=== PATIENT | female | born 1955 | race Caucasian/White ===

== ENCOUNTER 2016-06-27 11:06 | Inpatient (IN) | payer OTHER ==
[~2016-06-27] VITALS: Ht 170.2 cm; Wt 131.1 kg
--- NOTE | 2016-06-27 12:02 | DIAGNOSTIC IMAGING REPORT ---
PROCEDURE: XR CHEST 1 VIEW INDICATION: SOB AND ALTERED TECHNIQUE: Portable AP view 11:48 a.m. COMPARISON: None available FINDINGS: There is cardiomegaly and pulmonary vascular congestion. No focal infiltrates. IMPRESSION: 1. Cardiomegaly and pulmonary vascular congestion.
--- NOTE | 2016-06-27 15:02 | DIAGNOSTIC IMAGING REPORT ---
PROCEDURE: CT HEAD WITHOUT CONTRAST INDICATION: ALTERED TECHNIQUE: Axial CT images were acquired through the head. Coronal and sagittal reformations were created. COMPARISON: None. FINDINGS: No intracranial hemorrhage or extraaxial fluid collections. Ventricles are normal in size, shape and position. There is no mass, mass effect or midline shift. The oneil-white matter differentiation is normal. There is no edema. The calvarium is intact. The paranasal sinuses and mastoid air cells are normally aerated. The extracranial soft tissues and orbits are normal. IMPRESSION: 1. No CT evidence of acute intracranial process. 2. Findings discussed with Kaela at 03:[address] scans at this facility use dose modulation, iterative reconstruction, and/or weight-based dosing when appropriate to reduce radiation dose to as low as reasonably achievable.
--- NOTE | 2016-06-27 15:39 | DIAGNOSTIC IMAGING REPORT ---
PROCEDURE: CTA THORAX WITH CONTRAST INDICATION: SOB AND ELEVATED D-DIMER, initial encounter TECHNIQUE: 75 ml of Isovue 370 was injected intravenously and axial images were obtained of the entire thorax with 3D sagittal and coronal MIP reconstructions. COMPARISON: Chest x-ray 06/27/2016 FINDINGS: No evidence of pulmonary emboli. Ground-glass appearance of the lungs bilaterally. Mild mediastinal and hilar adenopathy. No effusions. Mild cardiomegaly. Minor coronary atherosclerosis. Small hiatal hernia. Mild degenerative changes of the spine. IMPRESSION: 1. No evidence of pulmonary emboli 2. Cardiomegaly with ground-glass passive lung suggestive of mild CHF 3. Results discussed with Dr. Sherwood
--- NOTE | 2016-06-27 15:46 | ED CLINICAL REPORT ---
Clinical Report - Physicians/Mid Levels [facility] [address] [place] [address] 06/27/2016 11:06 Patient: KAMARI BALDERAS Arrived- By ambulance. Historian- EMS personnel. History unobtainable due to patient's unresponsiveness. HISTORY OF PRESENT ILLNESS Chief Complaint: DECREASED MENTAL STATUS. This started today and is still present (staying the same). It was abrupt in onset and has been constant but is not gone now. 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 Similar symptoms previously: ( unable to obtain secondary to patient's condition). Recent medical care: ( unable to obtain secondary to patient's condition). REVIEW OF SYSTEMS unable to obtain secondary to patient's condition. PAST HISTORY See nurses notes. Medications: Metoprolol Succinate ER Oral (Tablet Extended Release 24 Hour 100 mg) 1 tablet, BID. Furosemide Oral (Tablet 40 mg) 1 tablet, daily. Spironolactone Oral (Tablet 25 mg) 1 tablet, daily. Losartan Potassium Oral (Tablet 100 mg) 1 tablet, daily. Digoxin Oral (Tablet 250 mcg) 1 tablet, daily. Levothyroxine Sodium Oral (Tablet 150 mcg) 1 tablet, daily. HumuLIN N Subcutaneous (Suspension 100 unit/mL) 55 units q Morning and 37 units every evening. HumuLIN R Injection (Solution 100 unit/mL) 5 units, BID. Levothyroxine Sodium Oral (Tablet 100 mcg) 1 tablet, daily. Hydrocodone-Acetaminophen Oral (Tablet 7.5-325 mg) 1 tablet, 4x a day. Famotidine Oral (Tablet 20 mg) 1 tablet, 2x a day. Allergies: NKDA. SOCIAL HISTORY unable to obtain secondary to patient's condition. FAMILY HISTORY unable to obtain secondary to patient's condition. ADDITIONAL NOTES The nursing notes have been reviewed. PHYSICAL EXAM Vital Signs: 06/27/2016 11:00 BP: 133/76. HR: 140. RR: 21. O2 saturation: 98%. Blood pressure normal. Tachycardic. Oxygen saturation normal. Appearance: Lethargic. Patient in severe distress. (obviously ill). Head: Head atraumatic. Eyes: Pupils equal, round and reactive to light. ENT: Normal ENT inspection. Airway intact. Moist mucous membranes. Pharynx normal. Neck: Normal inspection. Neck supple. No meningeal signs. CVS: Tachycardia. Abnormal rhythm (regularly irregular). Heart sounds normal. Pulses normal. Respiratory: No respiratory distress. Breath sounds normal. Abdomen: Soft and nontender. Back: Normal inspection. Skin: Skin warm and dry. Normal skin color. No rash. Normal skin turgor. Extremities: Extremities exhibit normal ROM. No lower extremity edema. No calf tenderness. No lower extremity edema. Neuro: Altered mental status. Alertness is decreased. Cranial nerves normal (as tested). (unable to completely neurological exam secondary to patient'sclinical condition. Patient is unable to follow commands. Patient's eyes do not open spontaneously and only open to tactile stimulation. Patient is able to make an understandable words Patient follows commands however is generally weak. Patient is moving all 4 extremities on command. Sensation is grossly intact). LABS, X-RAYS, AND EKG EKG: No acute ischemia. Atrial fibrillation (narrow-complex) (122). Abnormal P waves. Normal QRS complex. Normal axis. Normal ST and T waves, QT and QTc. a fib with RVR. The study has been interpreted contemporaneously by me. The study has been independently viewed by me. The EKG appears to be a good tracing. EKG #2: No acute ischemia. Normal sinus rhythm. Rate: 62. Normal P waves. Normal DOMINIC. Normal QRS complex. Q waves in lead II, III and aVF. Normal axis. Normal ST and T waves, QT and QTc. normal sinus. Q waves in inferior distribution. improved from prior. Changes present when compared to prior EKG. (improved). The study has been interpreted contemporaneously. The study has been independently viewed by me. The EKG appears to be a good tracing. Chest X-ray: (PROCEDURE: XR CHEST 1 VIEW INDICATION: SOB AND ALTERED TECHNIQUE: Portable AP view 11:48 a.m. COMPARISON: None available FINDINGS: There is cardiomegaly and pulmonary vascular congestion. No focal infiltrates. IMPRESSION: 1. Cardiomegaly and pulmonary vascular congestion.). Views: PA and lateral. The X-rays were independently viewed by me and interpreted contemporaneously by me. Laboratory Tests: UA-Culture if indicated: (JANNA: 06/27/2016 12:40) ( [facility] [place] 06/27/2016 13:05) Final results Test Result Flag Units (Reference) URINE COLOR YELLOW URINE APPEARANCE CLEAR URINE GLUCOSE 2+ (NEGATIVE) URINE BILIRUBIN NEGATIVE (NEGATIVE) URINE KETONE TRACE (NEGATIVE) URINE SPECIFIC GRAVITY 1.025 (1.010-1.030) URINE PH 5.5 (5.0-8.0) URINE PROTEIN NEGATIVE (NEGATIVE) URINE UROBILINOGEN 0.2 EU/dL (0.2-1.0) URINE NITRITE NEGATIVE (NEGATIVE) URINE BLOOD NEGATIVE (NEGATIVE) URINE LEUK ESTERASE NEGATIVE (NEGATIVE) URINE RBC NONE SEEN rbc/hpf (0-1) URINE WBC 1-3 wbc/hpf (0-1) URINE EPITHELIAL CELLS 3-5 EPI/hpf (0-5) URINE BACTERIA FEW (1+) (NONE SEEN) URINE COMMENT CULT NOT INDICATED 1+ AMORPHOUS [id number] HYALINE CASTS/LPFURINE CULTURES ARE SET-UP BASED ON THE FOLLOWING CRITERIA:POSITIVE NITRITEPOSITIVE LEUKOCYTE ESTERASEGREATER THAN 10 WHITE BLOOD CELLSMODERATE (2+) OR GREATER BACTERIA CBC w Diff: (JANNA: 06/27/2016 11:50) ( [facility] [place] 06/27/2016 11:59) Final results Test Result Flag Units (Reference) WHITE BLOOD COUNT 13.3 H K/uL (4.5-11.5) RED BLOOD COUNT 4.72 M/uL (4.00-5.20) HEMOGLOBIN 14.8 gm/dL (12.0-16.0) HEMATOCRIT 45.1 % (36.0-46.0) MEAN CELL VOLUME 96 fL (80-100) MEAN CORPUSCULAR HGB 31 pg (26-34) MEAN CORPUSCULAR HGB CONC 33 g/dL (31-37) RED CELL DISTRIBUTION WIDTH 14.6 % (11.6-14.8) PLATELET COUNT 215 K/uL (150-400) NEUTROPHIL % 80.9 H % (50-75) LYMPH % 12.9 L % (25-40) MONO % 5.8 % (3-14) EOSINOPHIL % 0.2 % (0-4) BASOPHIL % 0.2 % (0-2) PT with INR: (JANNA: 06/27/2016 11:50) ( [facility] 06/27/2016 12:12) Final results Test Result Flag Units (Reference) INR 1.1 (0.8-1.2) Low Intensity Therapy: INR 1.5-2.0 PT range 18.5-23.1Mod.Intensity Therapy: INR 2.0-3.0 PT range 23.1-31.5High Intensity Therapy: INR 2.5-3.5 PT range 27.4-35.5High Intensity Therapy 2: INR 3.0-4.0 PT range 31.5-39.3 APTT 27 SECONDS (24-34) D-DIMER QUANTITATIVE 1.47 H ug/mLFEU (0.27-0.52) The primary value of this quantitative assay relates toits negative predictive value (i.e. exclusion) of pulmonaryembolism/deep vein thrombosis/DIC.Elevated levels of d-dimer may also occur with:, age, cancer, inflammation, liver disease,post-op, infection, hematoma, coronary disease, peripheralarteriopathy, bleeding disorders and thrombolytic treatment.Results should be correlated with other clinical andradiological data.Testing Methodology: Latex Immunoassay Urine Drug Screen: (JANNA: 06/27/2016 12:40) ( [facility] 06/27/2016 13:09) Final results Test Result Flag Units (Reference) AMPHETAMINE/METHAMPHETAMINE NEGATIVE (NEGATIVE) BARBITURATE NEGATIVE (NEGATIVE) BENZODIAZEPINE NEGATIVE (NEGATIVE) CANNABINOID NEGATIVE (NEGATIVE) COCAINE NEGATIVE (NEGATIVE) ECSTASY NEGATIVE (NEGATIVE) METHADONE NEGATIVE (NEGATIVE) OPIATE POSITIVE H (NEGATIVE) The urine drug screen is a qualitative screening test fordrug overdose and abuse. All screen results should beconsidered as presumptive.Drugs screened for are as follows:BenzodiazepinesCocaineAmphetamines/MetamphetaminesTHC (Tetrahydrocannabinol)OpiatesBarbituratesEcstasyMethadonePositive results are unconfirmed. For confirmation, notifythe lab for the specimen to be sent to the reference lab.All confirmations must be performed by a differentmethodology.The ingestion of natural herbal and plant productscontaining Ephedra/Ephedra metabolites can produce in urineone or more substances capable of cross reacting withamphetamine/methamphetamine immunoassays. These testsprovide a preliminary result only. A more specificalternative chemical method must be used to obtain aconfirmed analytical result. Salicylate Level: (JANNA: 06/27/2016 12:10) ( [facility] 06/27/2016 13:24) Final results Test Result Flag Units (Reference) SALICYLATE <2.8 L mg/dL (2.8-20) Acetaminophen Level: (JANNA: 06/27/2016 12:10) ( [facility] 06/27/2016 13:40) Final results Test Result Flag Units (Reference) ACETAMINOPHEN < 1 L ug/mL (10-30) Lactate, Serum: (JANNA: 06/27/2016 11:50) ( [facility] 06/27/2016 13:32) Final results Test Result Flag Units (Reference) LACTIC ACID 4.8 H mmol/L (0.4-2.0) CRITICAL RESULTS CALLEDCalled to [facility] 06/27/16 [id number] 2 patient identifiers used? YWas the result read back? Y [id number]: (JANNA: 06/27/2016 12:10) ( [facility] 06/27/2016 12:55) Final results Test Result Flag Units (Reference) PROCALCITONIN 4.9 H ng/mL (0-0.5) PCT Concentration: Interpretation : Risk/option for action PCT <=0.5 ng/mL : Systemic : Low risk forinfection(sepsis): progression to severeis not likely. : systemic infection.Local bacterial : CAUTION-PCT levelsinfection is : below 0.5 ng/mL do notpossible. : exclude an infection,because localizedinfections (withoutsystemic signs) may beassociated with suchlow levels. If PCT ismeasured very earlyafter a bacterialchallenge (usually <6hours), these valuesmay still be low. Inthis case PCT shouldbe re-assessed 6-24hours later. PCT >0.5 and : Systemic infection: Moderate risk for<= 2 ng/mL : (sepsis) is : progression to severepossible, but : systemic infection.other conditions : The patient should beare known to : closely monitoredelevate PCT. : both clinically andby re-assessing PCTwithin 6-24 hours. PCT > 2 ng/mL : Systemic infection: High risk for(sepsis) is likely: progression to severeunless other : systemic infection.causes are known. : PCT >= 10 ng/mL : Important systemic: High likelihood ofinflammatory : severe sepsis orresponse, almost : septic shock.exclusively due to:severe bacterial :sepsis or septic :shock. : CMP: (JANNA: 06/27/2016 11:50) ( [facility] 06/27/2016 13:43) Final results Test Result Flag Units (Reference) TROPONIN I 0.00 ng/mL (0.00-1.5) TROPONIN REFERENCE RANGE:<0.1 NEGATIVE0.1-1.5 INDETERMINANT>1.5 POSITIVE GLUCOSE 226 H mg/dL (70-110) BUN 36 H mg/dL (7-18) CREATININE 1.6 H mg/dL (0.6-1.3) Estimated GFR 34.71 mL/min Estimated GFR- 42.07 mL/min Note: Persistent reduction over 3 months in eGFR<60 mL/min/1.73 m2 defines CKD. Patients with eGFR values>=60 mL/min/1.73 m2 may also have CKD if evidence ofpersistent proteinuria. Additional information may be foundat [email or web address]. SODIUM 138 mmol/L (136-145) POTASSIUM 3.3 L mmol/L (3.5-5.1) CHLORIDE 99 mmol/L (98-107) CARBON DIOXIDE 25 mmol/L (21-32) CALCIUM 9.1 mg/dL (8.5-10.1) TOTAL PROTEIN 7.2 g/dL (6.4-8.2) ALBUMIN 3.2 L g/dL (3.3-5.0) BILIRUBIN, TOTAL 0.8 mg/dL (0.0-1.0) ALKALINE PHOSPHATASE 117 H U/L (46-116) AST (SGOT) 24 U/L (15-37) ALT (SGPT) 35 U/L (12-78) THYROID STIMULATING HORMONE 17.262 H uIU/mL (0.30-3.74) . PROGRESS AND PROCEDURES Cardioversion: Indication: tachyarrhythmia. Patient clinically unstable with altered level of consciousness. IV established. O2 administered. Placed on monitoring and evaluation advisor and pulse oximeter. Airway equipment present. Preparations limited by clinical urgency. Cardioversion performed by ED physician. Supervised by me. Etomidate 20 mg IVP given. Electrical cardioversion via the anterolateral approach using pads. First shock at 200 joules. Second shock at 200 joules. Post cardioversion rhythm: normal sinus rhythm. No contact burn, apnea or hypotension. Patient required 2 shocks at 200 J. Patient tolerated procedure well. No compilations. Course of Care: the patient is a 60-year-old female with past medical history significant for diabetes resenting for evaluation of altered mental status. Per EMS, patient called them for shortness of breath. The patient was alert and oriented by the time that they had arrived. Patient was noted to be hypoglycemic. The patient was able to tolerate by mouth glucose and increased her blood sugar to normal levels. Since then, patient rapidly deteriorated and became minimally responsive. The patient does follow commands but is overall generally weak. Patient has been nonverbal since then. Workup at this time is extensive. Patient is moving all 4 extremities on command however is very sleepy and difficult to wake up. Patient is nonverbal here in the emergency department. At this time, differential diagnosis includes persistent hypoglycemia, electrolyte abnormality, or infectious etiology. While patient was being here in the emergency department, her pulse was noted to be rapid and irregular. When placed on the monitor, patient was noted to be in A. fib with RVR. Because of the patient's altered mental status, was concerned about patient being unstable. Unable to obtain verbal or written consent due to patient's condition. Because of this, the patient was placed on a monitor and cardioverted with 20 mg of etomidate. Respiratory therapist was available at bedside. Patient tolerated procedure well. Patient needed to shocks for her to get out of the A. fib. Patient with normal sinus rhythm. Patient monitored and continued to recover without any competitions. Patient continues to be nonverbal on repeat examination. We were able to get a temperature on the patient after we are unable to obtain axillary or oral temperatures. This was done through the Cordova catheter. Patient was noted to be hypothermic. In light of patient's persistent altered mental status, several laboratory studies have also been added to the patient's workup. The patient was also actively rewarmed with a bear hugger and with warm IV fluids. Patient will be monitored closely. Patient has no other bouts of sustained atrial fibrillation with RVR. Because of the patient's shortness of breath, a d-dimer was ordered. The d-dimer was noted to be elevated. CT scan of the patient's chest was ordered for evaluation of pulmonary embolism. A CT scan of the patient's head was also ordered due to the altered mental status. IV hydration was provided as the patient's creatinine was noted to be borderline. At this time I feel the benefits of the CT scan for evaluation of patient's reported shortness of breath outweighs the risks of contrast-induced nephropathy. The patient's workup is pending. At this time however patient does have significant lab abnormalities. PCT is elevated as well as lactic acid. Patient's white count is elevated to 13.3. Because of this, antibiotics and blood cultures have been ordered. Unclear where the patient's abnormal laboratory values have been arisen from however feel the benefits of antibiotic coverage given patient meeting SIRS criteria outweighs the risks. we'll continue to monitor the patient at this time. Patient without further clinical improvement with intervention started here in the emergency department. 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 We were able to speak to the patient's daughter who states that the patient has multiple medicalconditions including thyroid problems. We were able to contact the pharmacy the patient reportedly goes to. Medication lists were obtained. Because of the patient's abnormal TSH and altered mental status as well as hypoglycemia and hypotension, we'll provide patient with IV prednisone and Thyroid hormone. Patient will be monitored closely. Family member updated on patient's status. Approximately 15 minutes after medications have been provided, patient had become much more alert and was able to speak. Patient is resting in bed and in no acute distress. Patient is able to explain to us what it happened while she was here in the emergency department. The patient remembers us saying "clear. "This is likely occurred when she was being Cardioverted. patient here in the emergency department. No further questions or recommendations as far as for laboratory tests. Patient is to be admitted to the intensive care unit. Patient was transferred to the intensive care unit without furtherdelay or incident. Critical care performed (125 minutes). Time is exclusive of separately billable procedures. Time includes: direct patient care, patient reassessment, coordination of patient care, interpretation of data (laboratory data), review of patient's medical records, medical consultation, family consultation regarding treatment decisions and documentation of patient care. CLINICAL IMPRESSION myxedema coma hypothymia hypoglycemia atrial fibrillation with rapid ventricular response hypotension SIRS. (Electronically signed by Dick Sherwood Dr. 06/29/2016 18:24)
--- NOTE | 2016-06-27 15:46 | ED ORDER SUMMARY ---
..... Patient: KAMARI BALDERAS OrderSheet [facility] VisitID: [id number] [place] [address] 60y, F Registration Date/Time: 06/27/2016 ORDER SHEET Weight: 99.7 kg (estimated) Allergies: NKDA GENERAL ORDERS: Chest 1V Urgent (11:06/27/2016 Kika Palma) (Ack 11:42 LTapper) (11:58 KWilliams R.N.) Senior Electronics Engineer (Continuous) (altered) (11:06/27/2016 Kika Palma) (11:37 KWilliams R.N.) CBC w Diff Urgent (:06/27/2016 Kika Palma) (Ack 11:42 LTapper) (11:58 KWilliams R.N.) CMP Urgent (11:06/27/2016 Kika Palma) (Ack 11:42 LTapper) (11:58 KWilliams R.N.) UA-Culture if indicated Urgent (11:06/27/2016 Kika Palma) (Ack 11:42 LTapper) (13:24 KWilliams R.N.) Troponin-I Urgent (11:06/27/2016 Kika Palma) (Ack 11:42 LTapper) (11:58 KWilliams R.N.) D-Dimer Urgent (11:06/27/2016 Kika Palma) (Ack 11:42 LTapper) (11:58 KWilliams R.N.) TSH Urgent (11:06/27/2016 Kika Palma) (Ack 11:42 LTapper) (11:58 KWilliams R.N.) PT with INR Urgent (11:06/27/2016 Kika Palma) (Ack 11:42 LTapper) (11:58 KWilliams R.N.) PTT Urgent (11:06/27/2016 Kika Palma) (Ack 11:42 LTapper) (11:58 KWilliams R.N.) Lactate, Serum Urgent (11:06/27/2016 Kika Palma) (Ack 11:42 LTapper) (11:58 KWilliams R.N.) PCT (Procalcitonin) Urgent (11:19 06/27/2016 Kika Palma) (Ack 11:42 LTapper) (11:58 KWilliams R.N.) Pulse oximeter (11:19 06/27/2016 Kika Palma) (12:27 KWilliams R.N.) EKG - ER Stat (11:19 06/27/2016 Kika Palma) (11:37 KWilliams R.N.) CT Head wo Cont Urgent (12:03 06/27/2016 Kika Palma) (Ack 12:19 LTapper) (15:24 KWilliams R.N.) - (active rewarming) (12:46 06/27/2016 Kika Palma) (Ack 12:49 LTapper) (13:24 KWilliams R.N.) Acetaminophen Level Urgent (12:46 06/27/2016 Kika Palma) (Ack 12:49 LTapper) (13:39 KWilliams R.N.) Salicylate Level Urgent (12:46 06/27/2016 Kika Palma) (Ack 12:49 LTapper) (13:39 KWilliams R.N.) Urine Drug Screen Urgent (12:46 06/27/2016 Kika Palma) (Ack 12:49 LTapper) (13:24 KWilliams R.N.) CTA Thorax w Cont (Yes) (N/A) Urgent (12:47 06/27/2016 Kika Palma) (Ack 12:49 LTapper) (15:24 KWilliams R.N.) Blood Culture (No) (N/A) Urgent (13:33 06/27/2016 Kika Palma) (13:56 KWilliams R.N.) Troponin-I Urgent (15:02 06/27/2016 Kika Palma) (Ack 15:05 LTapper) (16:01 KWilliams R.N.) Digoxin Level Urgent (16:19 06/27/2016 KWilliams R.N. verbal order read back to Kika Palma) (16:19 KWilliams R.N.) MEDICATION ORDERS: Hydrocortisone IV 100 mg (NOW) (15:30 06/27/2016 Kika Palma) (15:59 KWmarty R.N.) - (Thyroid hormone 100 mcg IV once now) (15:33 06/27/2016 Kika Palma) (16:00 Nisreen R.N.) Aspirin PO 325 mg (Do not crush or chew, NOW) (19:09 06/27/2016 Kika Palma) (19:25 KWilliams R.N.) IV FLUIDS: IV NS : initial bolus 1000 mL (1000 mL/hr), then none - for X1 (NOW) (11:19 06/27/2016 Kika Palma) (11:39 KWilliams R.N.) Etomidate IV 20 mg (HIGH ALERT MEDICATION, NOW) (11:58 06/27/2016 Nisreen R.N. verbal order read back to Kika Palma) (11:58 KWilliams R.N.) Naloxone IV 0.1 mg (HIGH ALERT MEDICATION, NOW) (12:27 06/27/2016 Nisreen R.N. verbal order read back to Kika Palma) (12:31 KWkourtneyams R.N.) Naloxone IV 0.1 mg (Repeat up to total dose of 0.4mg) (12:32 06/27/2016 Nisreen R.N. verbal order read back to Kika Palma) (12:33 KWilliams R.N.) Ceftriaxone IV 2 gm/50mL (NOW) (13:31 06/27/2016 Kika Palma) (13:56 KWilliams R.N.) IV NS : initial bolus none -, then 1000 mL/hr for X1 (NOW) (13:43 06/27/2016 Nisreen R.N. verbal order read back to Kika Palma) (13:45 KWilliams R.N.) IV NS : initial bolus none -, then 1000 mL/hr (NOW) (15:37 06/27/2016 Nisreen R.N. verbal order read back to Kika Palma) (15:38 KWilliams R.N.) Morphine IV 2 mg (HIGH ALERT MEDICATION, NOW) (17:31 06/27/2016 Nisreen Ott verbal order read back to Kika Palma) (17:32 Nisreen McwilliamsNOswaldo) Morphine IV 2 mg (PRN x 1 dose) (17:33 06/27/2016 Nisreen Morton. verbal order read back to Kika Palma) (Ack 17:33 Nisreen R.N.) IV NS : initial bolus none -, then 75 mL/hr for 6h (NOW) (20:05 06/27/2016 Nisreen Ott verbal order read back to Kika Palma) (20:06 Nisreen Ott) ORDER SHEET NOTES: [Electronically signed by Rai Dykes R.N. (20:09 06/27/2016)] [Electronically signed by Dick Sherwood Dr. (18:24 06/29/2016)] [Electronically locked/signed by Rai Dykes R.N. (20:09 06/27/2016)]
--- NOTE | 2016-06-27 15:46 | ED NURSING NOTES ---
Clinical Report - Nurses [facility] [place] [address] 06/27/2016 11:06 Patient: KAMARI BALDERAS TRIAGE Triage time 11:00. Acuity: LEVEL 2. Chief Complaint: DECREASED RESPONSIVENESS. 11:00 06/27/16. FRANC COMA SCORE: Franc Coma Scale: 11- eyes open to pain (2); best verbal response- disoriented (4); best motor response- localizes to pain (5). --11:48 Rai Dykes R.N. 11:00 06/27/16. BP: 133/76. HR: 140. RR: 21. O2 saturation: 98%. --11:48 Rai Dykes R.N. Weight: 99.7 kg estimated. Height/Length: 66 inches Estimated. BMI: 35.5. --11:35 Rai Dykes R.N. Medications Famotidine Oral (Tablet 20 mg) 1 tablet, 2x a day. --12:12 Rai Dykes R.N. Hydrocodone-Acetaminophen Oral (Tablet 7.5-325 mg) 1 tablet, 4x a day. --12:12 Rai Dykes R.N. Levothyroxine Sodium Oral (Tablet 100 mcg) 1 tablet, daily. --16:04 Rai Dykes R.N. HumuLIN R Injection (Solution 100 unit/mL) 5 units, BID. --16:04 Rai Dykes R.N. HumuLIN N Subcutaneous (Suspension 100 unit/mL) 55 units q Morning and 37 units every evening. --16:05 Rai Dykes R.N. Levothyroxine Sodium Oral (Tablet 150 mcg) 1 tablet, daily. --16:06 Rai Dykes R.N. Digoxin Oral (Tablet 250 mcg) 1 tablet, daily. --16:06 Rai Dykes R.N. Losartan Potassium Oral (Tablet 100 mg) 1 tablet, daily. --16:07 Rai Dykes R.N. Spironolactone Oral (Tablet 25 mg) 1 tablet, daily. --16:08 Rai Dykes R.N. Furosemide Oral (Tablet 40 mg) 1 tablet, daily. --16:09 Rai Dykes R.N. Metoprolol Succinate ER Oral (Tablet Extended Release 24 Hour 100 mg) 1 tablet, BID. --16:10 Rai Dykes R.N. The following entry was struck by Rai Dykes R.N., 16:04 (06/27/16) Reason - other. <<STRICKEN ENTRY-- Nitroglycerin Sublingual. --12:17 Rai Dykes R.N. --END STRIKE>> The following entry was struck by Rai Dykes R.N., 16:04 (06/27/16) Reason - other. <<STRICKEN ENTRY-- Metoprolol Tartrate Oral. --12:17 Rai Dykes R.N. --END STRIKE>> The following entry was struck and corrected by Rai Dykes R.N., 16:03 (06/27/16) Reason for correction - other(correction). <<STRICKEN ENTRY-- Hydrocodone-Acetaminophen Oral. --12:12 Rai Dykes R.N. --END STRIKE>> The following entry was struck and corrected by Rai Dykes R.N., 16:03 (06/27/16) Reason for correction - other(correction). <<STRICKEN ENTRY-- Famotidine Oral. --12:12 Rai Dykes R.N. --END STRIKE>> The following entry was struck by Rai Dykes R.N., 16:03 (06/27/16) Reason - other. <<STRICKEN ENTRY-- Atorvastatin Calcium Oral. --12:12 Rai Dykes R.N. --END STRIKE>>. Allergies NKDA. --12:17 Rai Dykes R.N. History Arrived by EMS. Historian: EMS. Primary physician (eleni). ( pt called 911 from home c/o hypoglycemia and trouble breathing initially. Pt found to have sugar at 53 and given oral glucose followed by an IV insertion and 12.5 grams d50. Per EMS pt was decreased LOC but able to respond to them. Per this RN's initial assessment, pt is very minimally responsive, no verbal responses, winces to pain. Dr Sherwood brought into room to assess. See progress note. Pt unable to be fully triaged due to inability to answer questions for this RN.). This started just prior to arrival. Treatment [employer]OR[employer] WELLNESS DIRECTOR: None. --11:48 Rai Dykes R.N. Treatment SPORTS [employer] AND WELLNESS DIRECTOR: EMS treatment SPORTS FITNESS AND WELLNESS DIRECTOR verbally communicated and report reviewed. See report. Finger stick glucose performed (118 @5 min SPORTS [employer] AND WELLNESS DIRECTOR). BP: 157/95. HR: 80. RR: 16. O2 saturation: 98 % room air. End tidal CO2: 31. ( Afib 60-100 per medics). Upon arrival patient lethargic. IV infusing x1. --11:56 Rai Dykes R.N. PROBLEMS: Diabetes Mellitus. Tonsillitis. Otitis Media. Cellulitis. Sinus Problems. Immunizations. --12:17 Rai Dykes R.N. ADDITIONAL SURGERIES: . Knee Surgery. --12:17 Rai Dykes R.N. Interventions ID band on patient. To treatment room. --11:48 Rai Dykes R.N. PHYSICAL ASSESSMENT 11:00. To room via stretcher. Baseline functional status: usually alert and oriented x4. (lives alone). GENERAL / NEURO / PSYCH: Decreased awareness (opens eyes only to pain and lethargic). Altered mental status. Patient responds to pain only. No response to questions and responds to simple commands. ( Able to move fingers and toes equally when prompted by MD). HEENT: No facial asymmetry noted. RESPIRATORY: Respirations not labored. CVS: Capillary refill less than 2 seconds. SKIN: Skin is intact, warm and dry. --11:52 Rai Dykes R.N. NURSING PROGRESS NOTES 11:24 06/27/2016 Site #1 started prior to arrival by EMS via IV in the left antecubital space with an 18g angiocath, with aseptic technique and good blood return; one attempt. Saline lock flushed with 10 mL saline. --11:39 Rai Dykes R.N. 11:24 06/27/2016 Started bag #1 1000 mL IV Fluids IV NS (Saline); at 999 mL/hr over 1 hour(s) via site #1. Allergies verified and confirmed 5 rights. IV patency established. IV site checked: no pain, redness, or swelling. IV flushed thoroughly pre- and post-medication administration. --11:39 Rai Dykes R.N. 11:02. The plan of care for this patient has been created. school lunch monitor, pulse oximeter and NIBP monitor placed on patient; monitor alarms on. Patient gowned. Head of bed elevated. Side rails up x 2. Bed placed in lowest position. Brakes of bed on. Patient ready for evaluation- chart flagged and ED physician notified. --11:53 Rai Dykes R.N. <<STRICKEN ENTRY-- Cardiac rhythm: atrial fibrillation; (143). --11:53 Rai Dykes R.N. --END STRIKE>> Correction --11:53 Rai Dykes R.N. 11:05. Cardiac rhythm: atrial fibrillation; (143). --11:53 Rai Dykes R.N. 11:29 06/27/2016 Etomidate IVP 20 mg given over 2 minute(s) via site #1. Allergies verified and confirmed 5 rights. IV patency established. IV site checked: no pain, redness, or swelling. IV flushed thoroughly pre- and post-medication administration. IVP given by RN. --11:58 Rai Dykes R.N. 12:01 06/27/16. BP: 98/55. --12:06 Rai Dykes R.N. 12:06 06/27/16. BP: 101/58. HR: 60. RR: 14. O2 saturation: 97% on room air. Napoles-Hammond pain scale: 0/10. --12:08 Rai Dykes R.N. 12:18 06/27/16. BP: 108/61. HR: 62. RR: 16. O2 saturation: 100%. Pain level now 0/10. --12:18 Rai Dykes R.N. EKG time: (11:27 AM). EKG was performed by a tech and shown to the ED physician. --12:27 Rodriguez Montejo EKG time: (11:39 AM). EKG was performed by a tech and shown to the ED physician. --12:29 Rodriguez Montejo 12:15 06/27/2016 Naloxone IVP 0.1 mg given over 1 minute(s) via site #1. Allergies verified and confirmed 5 rights. IV patency established. IV site checked: no pain, redness, or swelling. IV flushed thoroughly pre- and post-medication administration. IVP given by RN. --12:31 Rai Dykes R.N. 12:18 06/27/16. Cardiac rhythm: normal sinus rhythm. --12:18 Rai Dykes R.N. 12:30 06/27/2016 Naloxone IVP 0.1 mg given over 1 minute(s) via site #1. Allergies verified and confirmed 5 rights. IV patency established. IV site checked: no pain, redness, or swelling. IV flushed thoroughly pre- and post-medication administration. IVP given by RN. --12:33 Rai Dykes R.N. 11:13. Finger stick glucose: 216. --12:33 Rai Dykes R.N. 11:29. ( Symptomatic Afib with RVR, pt sedated with etomidate and synchronized cardioversion @ 200 joules at 1129. Following first shock, pt continues to be in afib at rate of 117. 2nd shock delivered at 1131, synchronized at 200 joules. Following shock #2, Pt conversed to NSR at rate of 66. Pt continues to be lethargic and responsive to painful stimuli.). --12:02 Rai Dykes R.N. 12:57 06/27/16. BP: 115/45. HR: 56. RR: 18. O2 saturation: 100% on nasal cannula at 2 liters/minute. Temp: 34.5 C. Pain level now 0/10. Additional comments: temp sensing chavira. --12:59 Rai Dykes R.N. ( continues to be lethargic. aware. Opens eyes to painful stimuli. No verbal responses.). --12:59 Rai Dykes R.N. 13:11 06/27/16. HR: 56. RR: 18. O2 saturation: 100%. Temp: 34.2 C. Pain level now 0/10. Additional comments: temp sensing chavira upon initial placement. --13:12 Rai Dykes R.N. 12:35. 14 fr temperature sensing chavira catheter for close monitoring of hypothermia. Data sent to monitor. Inserted as precaution. Reason for indwelling catheter: patient's decreased level of consciousness. During procedure hand hygiene observed and sterile equipment and aseptic technique used. Return of 250 mL denise-colored clear urine; odor is normal; attached to bedside drainage bag positioned below the bladder and urimeter and secured with stabilization device. She tolerated procedure well. --13:12 Rai Dykes R.N. 12:35. Warming measures: blanket and warming unit applied (warming lights). --13:13 Rai Dykes R.N. 13:03 06/27/2016 Site #2 started via IV in the right antecubital space with an 18g angiocath, with aseptic technique and good blood return; one attempt. Saline lock flushed with 10 mL saline (via ultrasound guidance). --13:13 Rai Dykes R.N. 13:15 06/27/16. BP: 96/63. HR: 50. RR: 15. O2 saturation: 100% on room air. Temp: 34.7 C. Pain level now 0/10. --13:24 Rai Dykes R.N. 13:15. --13:24 Rai Dykes R.N. 13:15. ( IV fluids infusing through fluid warmer unit). --13:24 Rai Dykes R.N. 13:24 06/27/16. BP: 104/48. HR: 51. RR: 16. O2 saturation: 100%. Temp: 34.8 C. Pain level now 0/10. --13:27 Rai Dykes R.N. 13:44 06/27/16. BP: 116/50. HR: 56. RR: 19. O2 saturation: 100% on nasal cannula at 2 liters/minute. Temp: 34.9 C. Pain level now 0/10. --13:45 Rai Dykes R.N. 13:10 06/27/2016 Started bag #2 1000 mL IV Fluids IV NS (Saline); at 999 mL/hr over 1 hour(s) via site #2 via IV pump. Allergies verified and confirmed 5 rights. IV patency established. IV site checked: no pain, redness, or swelling. IV flushed thoroughly pre- and post-medication administration (fluid warmer). --13:45 Rai Dykes R.N. 13:45 06/27/16. --13:45 Rai Dykes R.N. Patient ID band checked. Blood samples drawn from the peripheral IV site with syringe by nurse and sent to lab: blood culture (1st set). Initial blood discarded. Line flushed with 10 mL normal saline post blood draw. --13:49 Rai Dykes R.N. 13:54 06/27/2016 Started 2 gm of Ceftriaxone IVPB in bag #1 50 mL; at 150 mL/hr over 20 minute(s) via site #2 via IV pump. Allergies verified and confirmed 5 rights. IV patency established. IV site checked: no pain, redness, or swelling. IV flushed thoroughly pre- and post-medication administration. --13:56 Rai Dykes R.N. 13:59 06/27/16. BP: 124/56. HR: 63. RR: 16. O2 saturation: 100%. Temp: 35 C. Pain level now 0/10. --14:00 Rai Dykes R.N. 14:19 06/27/16. BP: 110/52. HR: 56. RR: 18. O2 saturation: 100% on room air. Temp: 35.1 C. Pain level now 0/10. --14:19 Rai Dykes R.N. Reassessment after fluids administered and intervention. She has had no adverse reaction. --14:19 Rai Dykes R.N. 14:17 06/27/2016 Ceftriaxone IVPB Discontinued: bag #1 infused. Total amount infused: 50 mL. IV patency established. IV site checked: no pain, redness, or swelling. IV flushed thoroughly. --14:27 Rai Dykes R.N. 14:24 06/27/16. Cardiac rhythm: normal sinus rhythm. ( sister at bedside). --14:24 Rai Dykes R.N. 14:33. Patient transported to MI by stretcher with monitor, nurse and tech. --14:56 Rai Dykes R.N. 15:00 06/27/16. BP: 121/62. HR: 60. RR: 15. O2 saturation: 99% on room air. Temp: 35.9 C. Pain level now 0/10. --15:23 Rai Dykes R.N. 15:00. --15:23 Rai Dykes R.N. Cardiac rhythm: normal sinus rhythm. --15:24 Rai Dykes R.N. Reassessment after intervention and medication administered. She has had no adverse reaction. Overall patient status is improved- she states feels better. ( pt much improved. GCS15, opens eyes spontaneously. Conversing with this RNMD, and her sister.). --16:31 Rai Dykes R.N. 16:28 06/27/16. BP: 115/50. HR: 71. RR: 16. O2 saturation: 100% on room air. Temp: 36.6 C. Pain level now 8/10. --16:31 Rai Dykes R.N. 17:19 06/27/16. BP: 119/54. HR: 70. RR: 12. O2 saturation: 97% on room air. Temp: 37 C. Pain level now 8/10. --17:20 Rai Dykes R.N. Cardiac rhythm: normal sinus rhythm. --17:20 Rai Dykes R.N. 17:08. Reassessment after intervention and medication administered. She reports no complaints, she is calm and resting quietly and she has had no adverse reaction. --17:36 Rai Dykes R.N. 17:31 06/27/16. BP: 103/47. HR: 72. RR: 15. O2 saturation: 99% on room air. Temp: 37.2 C (oral). --17:36 Rai Dykes R.N. 18:37 06/27/16. BP: 109/46. HR: 77. RR: 17. O2 saturation: 96% on room air. Temp: 37.6 C. Pain level now 12/05. --18:37 Rai Dykes R.N. 12:30 06/27/2016 IV Fluids IV NS Discontinued: bag #1 infused. Total amount infused: 1000 mL. IV patency established. IV site checked: no pain, redness, or swelling. IV flushed thoroughly. --20:02 Rai Dykes R.N. 14:25 06/27/2016 IV Fluids IV NS Discontinued: bag #2 infused. Total amount infused: 1000 mL. IV patency established. IV site checked: no pain, redness, or swelling. IV flushed thoroughly. --20:04 Rai Dykes R.N. 14:56 06/27/16. Patient returned from CT by stretcher with monitor, nurse and tech. --14:56 Rai Dykes R.N. 15:03 06/27/2016 Started bag #3 1000 mL IV Fluids IV NS (Saline); at 999 mL/hr over 1 hour(s) via site #2 via IV pump. Allergies verified and confirmed 5 rights. IV patency established. IV site checked: no pain, redness, or swelling. IV flushed thoroughly pre- and post-medication administration (fluid warmer). --15:38 Rai Dykes R.N. 15:52 06/27/2016 Hydrocortisone IVP 100 mg given over 2 minute(s) via site #1. Allergies verified and confirmed 5 rights. IV patency established. IV site checked: no pain, redness, or swelling. IV flushed thoroughly pre- and post-medication administration. IVP given by RN. --15:59 Rai Dykes R.N. 15:55 06/27/2016 Levothyroxine * IVP 100 mcg Diluted with 5cc NS per pharmacy. Slowly pushed over 5 minutes --16:00 Rai Dykes R.N. 16:05 06/27/2016 IV Fluids IV NS Discontinued: bag #3 infused. Total amount infused: 1000 mL. IV patency established. IV site checked: no pain, redness, or swelling. IV flushed thoroughly. --20:05 Rai Dykes R.N. 16:10 06/27/2016 Started bag #4 1000 mL IV Fluids IV NS (Saline); at 75 mL/hr over 6 hour(s) via site #2 via IV pump. Allergies verified and confirmed 5 rights. IV patency established. IV site checked: no pain, redness, or swelling. IV flushed thoroughly pre- and post-medication administration. Completed per protocol (fluid warmer). --20:06 Rai Dykes R.N. 16:36 06/27/16. FRANC COMA SCORE: Gerald Coma Scale: 15- eyes open spontaneously (4); best verbal response- oriented x 4 (5); best motor response- obeys commands (6). --16:36 Rai Dykes R.N. 17:25 06/27/2016 Morphine IVP 2 mg given over 2 minute(s) via site #2. Allergies verified, confirmed 5 rights and sedative warning given to the patient and patient's public welfare worker. IV patency established. IV site checked: no pain, redness, or swelling. IV flushed thoroughly pre- and post-medication administration. IVP given by RN. --17:32 Rai Dykes R.N. 18:37 06/27/16. Cardiac rhythm: normal sinus rhythm. --18:37 Rai Dykes R.N. 19:10 06/27/2016 Aspirin PO Tablets 325 mg given. Allergies verified and confirmed 5 rights. --19:25 Rai Dykes R.N. 19:20 06/27/2016 IV Fluids IV NS Continued: upon admission at the rate of 75 mL/hr. 750 mL remaining bag #4. IV patency established. IV site checked: no pain, redness, or swelling. IV flushed thoroughly. --20:07 Rai Dykes R.N. Intake & Output 15:24 06/27/16. Urine, with return of 400 mL urine. --15:24 Rai Dykes R.N. DISPOSITION / DISCHARGE 19:16 06/27/16. Departure time: 1919. Cardiac rhythm: normal sinus rhythm. Condition at departure: improved and stable. Admitted to the Critical Care Unit. Transported via stretcher by nurse with monitor, defibrillator and IV (by this RN). ( Report to be given at bedside to TIRE FABRICATOR). Patient's personal items; items were transported with the patient. --19:16 Rai Dykes R.N. 19:12 06/27/16. BP: 109/74. HR: 86. RR: 23. O2 saturation: 95% on room air. Temp: 37.7 C. Pain level now 10. --19:16 Rai Dykes R.N. 19:30. Report was given to a nurse at the bedside. Report included patient's care, treatment, medications, reviewed medication reconcilliation, and condition (including any recent changes or anticipated changes). All questions were answered. Report was acknowledged and care was transferred. --20:07 Rai Dykes R.N. Locked/Released at 06/27/2016 20:09 by Rai Dykes R.N.
--- NOTE | 2016-06-27 18:44 | Progress Note ---
Subjective General Admission History and Physical Examination Patient Name: Aniya Sultana Admission Date: June 27, 2016 Primary Care Provider: Elroy Alvarez M.D. Attending Physician: Jamil Navarro M.D. Admitting Physician: Jamil Navarro M.D. SUBJECTIVE Historian: Relatives, patient Reliability: Poor Chief Complaint: Altered mental status History of Present Illness: The patient is a 60-year-old white female with a significant past medical history of diabetes mellitus, hypothyroidism, hypertension, degenerative joint disease, cataracts, hypercholesterolemia, gastroesophageal reflux, who presented to [facility] emergency department on the day of admission secondary to complaints of altered mental status and shortness of breath. [facility] ER evaluation was consistent with findings of hypoglycemia, hypothermia, altered mental status, atrial fibrillation with rapid ventricular response, and possible sepsis. Secondary to the above, the patient was admitted by Jamil Navarro M.D. for further evaluation and treatment. The history of present was began on the day of admission when the patient apparently experienced an episode of hypoglycemia at home. This was associated with altered mental status according transported to [facility] emergency department. The patient was administered D50 with improved status. She is noted to have findings of atrial fibrillation with rapid response and underwent cardioversion in [facility] emergency department. Addition the patient's only have hypothermia. Her white count was elevated with elevated Procalcitonin but no obvious source of infectious process. Secondary to the above the patient was admitted for further evaluation and treatment. PAST MEDICAL HISTORY Illnesses: 1. Diabetes mellitus 2. Hypertension 3. Hyperlipidemia 4. Gastroesophageal reflux 5. Hypothyroidism 6. Atrial fibrillation Allergies: 1. No Known Drug Allergies Medications: 1. Synthroid 0.15 mg by mouth daily 2. Digoxin 0.25 mg by mouth daily 3. Humulin N 55 units subcutaneous every morning and 37 units subcutaneous every p.m 4. Regular insulin 10 units subcutaneous with each meal Surgery: 1. Right knee surgery 2. 2 3. Thyroidectomy 4. Cataract surgery-IOL Injuries: 1. Unknown Hospitalizations: 1. For above surgery and medical problems FAMILY HISTORY Parents: 1. Father, , 79, cancer type unknown, 2. Mother, , 82, COPD Siblings: 1. The patient has 5 siblings one of which is Children: 1. The patient has 2 children both in good health Other significant family history: None SOCIAL HISTORY 1. Marital Status: 2. Evangelical: None 3. Education: High School and 2 years of vocational education 4. Employment History: disabled 5. Occupational health exposures: None HABITS 1. Tobacco: None 2. Drugs: None 3. Alcohol: None 4. Caffeine: coffee 2 cups per day, soft drinks 2 cups per day HEALTH SUPERVISION Item/Test 1. Not reviewed IMMUNIZATIONS: 1. Pneumococcal: Unknown 2. Influenza: Unknown 3. Tetanus: Unknown REVIEW OF SYSTEMS Remarkable for those things stated in the history of present illness and past medical history. Seventeen point review of system completed with the following notable findings: Unobtainable secondary to mental status Physical Exam General Appearance Oriented X3, Cooperative, No acute distress, lethargic HEENT Atraumatic, PERRLA, EOMI, Moist mucous membranes Lungs Clear to auscultation Neck Supple, No JVD Cardiovascular Regular rate and rhythm, Normal S1 and S2 Abdomen Normal bowel sounds, Soft, No tenderness Extremities No cyanosis, No clubbing Neurological Cranial nerves intact, Strength 5/5 x4 ext's, No lateralizing signs Psych/Mental Status Mental status normal, Mood normal LAB Results Laboratory Tests 06/27 06/27 06/27 06/27 1619 1548 1240 1210 Chemistry Troponin (0.00 - 1.5 ng/mL) <0.05 Toxicology Digoxin (0.9 - 2.0 ng/mL) 0.4 Salicylates (2.8 - 20 mg/dL) <2.8 Urine Opiates Screen (NEGATIVE) POSITIVE Urine Methadone Screen (NEGATIVE) NEGATIVE Ur Barbiturates Screen (NEGATIVE) NEGATIVE U Amphetamin/Meth Scrn (NEGATIVE) NEGATIVE MDMA (Ecstasy) Screen (NEGATIVE) NEGATIVE U Benzodiazepines Scrn (NEGATIVE) NEGATIVE Urine Cocaine Screen (NEGATIVE) NEGATIVE U Cannabinoids Screen (NEGATIVE) NEGATIVE Urines Urine Color YELLOW Urine Appearance CLEAR Urine pH (5.0 - 8.0) 5.5 Ur Specific [place] (1.010 - 1.030) 1.025 Urine Protein (NEGATIVE) NEGATIVE Urine Ketones (NEGATIVE) TRACE Urine Blood (NEGATIVE) NEGATIVE Urine Nitrite (NEGATIVE) NEGATIVE Urine Bilirubin (NEGATIVE) NEGATIVE Urine Urobilinogen (0.2 - 1.0 EU/dL) 0.2 Ur Leukocyte Esterase (NEGATIVE) NEGATIVE Urine RBC (0 - 1 rbc/hpf) NONE SEEN Urine WBC (0 - 1 wbc/hpf) 1-3 Ur Epithelial Cells (0 - 5 EPI/hpf) 3-5 Urine Bacteria (NONE SEEN) FEW (1+) Urine Glucose (NEGATIVE) 2+ Urine Comment CULT NOT INDICATED 06/27 06/27 06/27 1210 1150 1150 Chemistry Plasma Sodium (136 - 145 mmol/L) 138 Plasma Potassium (3.5 - 5.1 mmol/L) 3.3 Plasma Chloride (98 - 107 mmol/L) 99 CO2 (Enzymatic) (21 - 32 mmol/L) 25 BUN (7 - 18 mg/dL) 36 Creatinine (0.6 - 1.3 mg/dL) 1.6 Est GFR ( Amer) (mL/min) 42.07 Est GFR (Non-Af Amer) (mL/min) 34.71 Glucose (70 - 110 mg/dL) 226 Lactic Acid (0.4 - 2.0 mmol/L) 4.8 Plasma Calcium (8.5 - 10.1 mg/dL) 9.1 Total Bilirubin (0.0 - 1.0 mg/dL) 0.8 AST (15 - 37 U/L) 24 ALT (12 - 78 U/L) 35 Alkaline Phosphatase (46 - 116 U/L) 117 Troponin (0.00 - 1.5 ng/mL) 0.00 Total Protein (6.4 - 8.2 g/dL) 7.2 Albumin (3.3 - 5.0 g/dL) 3.2 Procalcitonin (0 - 0.5 ng/mL) 4.9 TSH 3rd Generation (0.30 - 3.74 uIU/mL) 17.262 Coagulation INR (0.8 - 1.2) 1.1 APTT (24 - 34 SECONDS) 27 D-Dimer, Quantitative (0.27 - 0.52 ug/mLFEU) 1.47 Hematology WBC (4.5 - 11.5 K/uL) 13.3 RBC (4.00 - 5.20 M/uL) 4.72 Hgb (12.0 - 16.0 gm/dL) 14.8 Hct (36.0 - 46.0 %) 45.1 MCV (80 - 100 fL) 96 MCH (26 - 34 pg) 31 RDW (11.6 - 14.8 %) 14.6 Neut % (Auto) (50 - 75 %) 80.9 Lymph % (Auto) (25 - 40 %) 12.9 [place] % (Auto) (3 - 14 %) 5.8 Eos % (Auto) (0 - 4 %) 0.2 Baso % (Auto) (0 - 2 %) 0.2 Plt Count, EDTA (150 - 400 K/uL) 215 PUBS MCHC (31 - 37 g/dL) 33 Toxicology Acetaminophen (10 - 30 ug/mL) < 1 Microbiology Date/Time Procedure - Status Source Growth 06/27 1355 Blood Culture - RECD BLOOD 06/27 1348 Blood Culture - RECD BLOOD Imaging Chest X-Ray IMPRESSION: 1. Cardiomegaly and pulmonary vascular congestion. Dictated by: PETER SULLIVAN MD D: ULI;06/27/[address] Scan Head IMPRESSION: 1. No CT evidence of acute intracranial process. 2. Findings discussed with Kaela at 03:00 p.m. Dictated by: PETER SULLIVAN MD D: [facility]LI;06/27/[address] Thorax IMPRESSION: 1. No evidence of pulmonary emboli 2. Cardiomegaly with ground-glass passive lung suggestive of mild CHF 3. Results discussed with Dr. Sherwood Dictated by: LIBRA DEVINE MD D: DOMO;06/27/16 1538 Assessment and Plan Problem List 1. Atrial fibrillation with RVR Plan -Patient presented with atrial fibrillation with rapid ventricular response -Patient underwent cardioversion in the emergency department -Lopressor 25 mg by mouth every 8 hours. -Check echocardiogram in a.m. -Monitor 2. Hypoglycemia Plan -Patient presented with findings of hypoglycemia -Corrected in the emergency department -Monitor blood sugar every 2 hours until stable -IV glucose administration, insulin sliding scale -Check hemoglobin A1c -Review previous treatment for diabetes mellitus 3. Hypothermia Plan -Patient presents with findings of hypothermia in setting of hyperglycemia/ hypothyroidism -External warming -Monitor 4. Hypotension Plan -Patient presented with mild hypotension -Resolved -Monitor 5. Sepsis Status Acute Onset Date Unknown Plan -patient presents with suspected sepsis -Patient with leukocytosis, elevated procalcitonin -Chest x-ray, urinalysis unremarkable -Rocephin administered empirically by ER physician -Await blood cultures 2, -Repeat lactic acid, Pro calcitonin, monitor 6. Hypokalemia Status Acute Onset Date Unknown Plan -patient with mild hypokalemia -IV supplementation IV fluids -Recheck in a.m. -Monitor 7. Azotemia Status Acute Onset Date Unknown Plan -patient with mild azotemia suggestive of mild dehydration/prerenal azotemia -Monitor --IV fluid therapy 8. Hypothyroidism Status Chronic Onset Date Unknown Plan -Patient presents with findings of hypothyroidism with hypothermia -Synthroid 0.2 mg now -Obtain previous workup and dosage schedule for thyroid supplementation -Monitor Current status: Fair, unstable Anticipated discharge date: Anticipated discharge in 2-3 days Anticipated discharge placement: Home versus nursing home facility Patient care time: Time spent in chart review, patient interview, physical exam, CPOE, and care documentation: 70 minutes Visit to patient today: 1 Complexity of care: High E&M Codes Admission: Inpt-High/[id number]
[2016-06-27 19:55] VITALS: BP 117/32
[2016-06-27 21:12] VITALS: BP 135/45
[2016-06-27 22:10] VITALS: BP 98/38
[2016-06-27 23:11] VITALS: BP 104/43
[2016-06-28] VITALS (26 sets, daily range): BP systolic 92–113; BP diastolic 33–60
[2016-06-28] MEDS ORDERED: HUMALIN R100 UNITS/ SC (06:55)
[2016-06-28] MEDS ORDERED: DIGOXIN0.25 MG PO (06:59)
[2016-06-28] MEDS ORDERED: LEVOTHYROXINE100 MCG PO (06:59)
[2016-06-28] MEDS ORDERED: VICODIN EQUIVAL1 TAB PO (07:06)
[2016-06-28] MEDS ORDERED: INSULIN N (07:41)
--- NOTE | 2016-06-28 07:49 | Progress Note ---
Subjective General Note Date: June 28, 2016 Admission Date: June 27, 2016 Hospital Day: 2 PCP: Elroy Alvarez M.D. Status: Inpatient Advanced Directive: FULL CODE Room: 303 Brief History: The patient is a 60-year-old white female with a significant past medical history of diabetes mellitus, hypothyroidism, hypertension, degenerative joint disease, cataracts, hypercholesterolemia, gastroesophageal reflux, who presented to [facility] emergency department on the day of admission secondary to complaints of altered mental status and shortness of breath. [facility] ER evaluation was consistent with findings of hypoglycemia, hypothermia, altered mental status, atrial fibrillation with rapid ventricular response, and possible sepsis. Secondary to the above, the patient was admitted by Jamil Navarro M.D. for further evaluation and treatment. For other history present illness, past medical history, family history, social history, review of systems, and admission physical examination please see the patient's history and physical examination and ER visit note in the patient's medical record. Subjective: The patient status is improved today. More alert. Complains of backache- chronic. Back pain is the patient's primary concern at this time. No other specific requests or complaints Patient requests: None Medications and Allergies Medications Current Medications Sig/Valeria Start time Last Medication Dose Route Stop Time Status Admin Ceftriaxone Sodium/ 50 ML Q24HR 06/28 0900 AC Dextrose IV Pantoprazole Sodium 40 MG DAILY@0600 06/28 0600 AC 06/28 IV 0507 Sodium Chloride 1,000 ML ASDIRECTED 06/28 0200 AC 06/28 IV 0518 Insulin Human Lispro See Dose Q6HR 06/28 0000 06/28 Insts (1) SC 0538 Metoprolol Tartrate 25 MG Q8HR 06/27 2200 AC 06/28 PO 0507 Dextrose See Dose Q15MIN PRN 06/27 2130 AC Insts (2) IV Dextrose See Dose Q15MIN PRN 06/27 2130 AC Insts (3) PO Dextrose/Water 1,000 ML ASDIRECTED PRN 06/27 2130 AC IV Glucagon 1 MG Q15MIN PRN 06/27 2130 AC IM Azithromycin 500 MG Q24H 06/27 2100 AC 06/27 Sodium Chloride 250 ML IV 06/29 2199 224 Enoxaparin Sodium 40 MG QHS 06/27 2100 AC 06/27 SC 2243 Acetaminophen 650 MG Q4H PRN 011914 AC 06/27 PO 2242 Al Hydrox/Mg Hydrox/ 15 ML Q1H PRN 06/27 1914 AC Simethicone PO Albuterol/Ipratropium 3 ML Q6H PRN 06/27 1914 AC IN Atropine Sulfate 0.5 MG Q3MIN PRN 06/27 1914 AC IV Lidocaine HCl See Dose ONCE PRN 06/27 1914 AC Insts (4) IV Magnesium Hydroxide 10 ML DAILY PRN 06/27 1914 AC PO Morphine Sulfate 2 MG Q3M PRN 06/27 1914 AC IV Naloxone HCl 0.4 MG PRN PRN 06/27 1914 AC IV Nitroglycerin 0.4 MG Q5M PRN 06/27 1914 AC SL Ondansetron HCl 4 MG Q6H PRN 06/27 1914 AC IV Dose Instructions: (1)Insulin Human Lispro: MEDIUM DOSE: ACCUCHECK AND SLIDING SCALE >>To change sliding scale DISCONTINUE this order and enter a NEW order. Thanks< (2)Dextrose: 25 OR 50 ML SEE ADMIN CRITERIA (3)Dextrose: 1 OR 2 TUBES SEE ADMIN CRITERIA (4)Lidocaine HCl: 1.5 MG/KG Allergies Coded Allergies: Coconut Flavor (06/28/16) [place] (06/28/16) Physical Exam Vital Signs / I&Os Vital Signs Date Time Temp Pulse Resp B/P Pulse O2 O2 Flow FiO2 Ox Delivery Rate 06/28 0700 65 13 110/49 99 Nasal 3.0 Cannula 06/28 0609 97.9 61 22 97/43 95 Nasal 3.0 Cannula 06/28 0514 70 22 107/44 100 Nasal 3.0 Cannula 06/28 0410 70 22 93/37 100 Nasal 3.0 Cannula 06/28 0310 69 22 111/54 98 Nasal 3.0 Cannula 06/28 0209 73 22 96/33 98 Nasal 3.0 Cannula 06/28 0127 98.8 71 22 105/38 98 Nasal 3.0 Cannula 06/28 0017 97.9 75 22 110/34 100 Nasal 3.0 Cannula 06/27 2311 81 22 104/43 99 Nasal 3.0 Cannula 06/27 2209 98.8 90 24 98/38 95 Nasal 3.0 Cannula 06/27 2116 3.0 06/27 2111 92 26 135/45 97 Nasal 3.0 Cannula 06/27 2100 Room Air 06/27 1954 98.2 89 17 117/32 92 Room Air I&O 06/28 0000 06/27 1600 06/27 0800 Intake Total 0 Output Total 430 Balance -430 General Appearance Oriented X3, Cooperative, No acute distress, slight lethargy Lungs Clear to auscultation Neck Supple, No JVD Cardiovascular Regular rate and rhythm, Normal S1 and S2 Abdomen Normal bowel sounds, Soft, No tenderness Extremities No cyanosis, No clubbing Neurological Grossly normal Psych/Mental Status Mental status normal, Mood depressed, slightly lethargic LAB Results Laboratory Tests 06/28 06/28 06/28 06/27 06/27 0147 0147 0147 2034 2034 Chemistry Plasma Sodium (136 - 145 mmol/L) 131 Plasma Potassium (3.5 - 5.1 mmol/L) 5.2 Plasma Chloride (98 - 107 mmol/L) 97 CO2 (Enzymatic) (21 - 32 mmol/L) 18 BUN (7 - 18 mg/dL) 37 Creatinine (0.6 - 1.3 mg/dL) 1.5 Est GFR ( Amer) (mL/min) 45.33 Est GFR (Non-Af Amer) (mL/min) 37.40 Glucose (70 - 110 mg/dL) 642 Hemoglobin A1c % (4.5 - 6.2 %) 9.6 Plasma Calcium (8.5 - 10.1 mg/dL) 7.9 Total Bilirubin (0.0 - 1.0 mg/dL) 0.9 AST (15 - 37 U/L) 34 ALT (12 - 78 U/L) 28 Alkaline Phosphatase (46 - 116 U/L) 98 Creatine Kinase (24 - 260 U/L) 230 153 Troponin (0.00 - 1.5 ng/mL) <0.05 <0.05 B-Natriuretic Peptide (5 - 100 pg/ml) 136 Total Protein (6.4 - 8.2 g/dL) 6.5 Albumin (3.3 - 5.0 g/dL) 2.7 Hematology WBC (4.5 - 11.5 K/uL) 13.7 RBC (4.00 - 5.20 M/uL) 3.97 Hgb (12.0 - 16.0 gm/dL) 12.1 Hct (36.0 - 46.0 %) 37.2 MCV (80 - 100 fL) 94 MCH (26 - 34 pg) 31 RDW (11.6 - 14.8 %) 14.9 Neut % (Auto) (50 - 75 %) 87 Lymph % (Auto) (25 - 40 %) 9 [place] % (Auto) (3 - 14 %) 4 Eos % (Auto) (0 - 4 %) 0 Baso % (Auto) (0 - 2 %) 0 Band Neutrophils % (0 - 8 %) 0 Metamyelocytes % (0 - 1 %) 0 Myelocytes (0 - 1 %) 0 Other Cell Type 0 Plt Count, EDTA (150 - 400 K/uL) 169 PUBS MCHC (31 - 37 g/dL) 33 06/27 06/27 06/27 06/27 06/27 1903 1903 1903 1619 1548 Chemistry Plasma Sodium (136 - 145 mmol/L) 136 Plasma Potassium (3.5 - 5.1 mmol/L) 4.6 Plasma Chloride (98 - 107 mmol/L) 100 CO2 (Enzymatic) (21 - 32 mmol/L) 23 BUN (7 - 18 mg/dL) 32 Creatinine (0.6 - 1.3 mg/dL) 1.2 Est GFR ( Amer) (mL/min) 58.64 Est GFR (Non-Af Amer) (mL/min) 48.38 Glucose (70 - 110 mg/dL) 432 Lactic Acid (0.4 - 2.0 mmol/L) 2.0 Plasma Calcium (8.5 - 10.1 mg/dL) 7.9 Troponin (0.00 - 1.5 ng/mL) <0.05 Procalcitonin (0 - 0.5 ng/mL) 5.2 Hematology WBC (4.5 - 11.5 K/uL) 14.7 RBC (4.00 - 5.20 M/uL) 4.13 Hgb (12.0 - 16.0 gm/dL) 12.9 Hct (36.0 - 46.0 %) 38.8 MCV (80 - 100 fL) 94 MCH (26 - 34 pg) 31 RDW (11.6 - 14.8 %) 14.5 Neut % (Auto) (50 - 75 %) 86 Lymph % (Auto) (25 - 40 %) 9 [place] % (Auto) (3 - 14 %) 2 Eos % (Auto) (0 - 4 %) 1 Baso % (Auto) (0 - 2 %) 0 Band Neutrophils % (0 - 8 %) 2 Metamyelocytes % (0 - 1 %) 0 Myelocytes (0 - 1 %) 0 Other Cell Type 0 Plt Count, EDTA (150 - 400 K/uL) 206 Anisocytosis (manual) 1+ PUBS MCHC (31 - 37 g/dL) 33 Toxicology Digoxin (0.9 - 2.0 ng/mL) 0.4 06/27 06/27 06/27 06/27 1240 1210 1210 1150 Chemistry Lactic Acid (0.4 - 2.0 mmol/L) 4.8 Procalcitonin (0 - 0.5 ng/mL) 4.9 Toxicology Salicylates (2.8 - 20 mg/dL) <2.8 Urine Opiates Screen (NEGATIVE) POSITIVE Urine Methadone Screen (NEGATIVE) NEGATIVE Acetaminophen (10 - 30 ug/mL) < 1 Ur Barbiturates Screen (NEGATIVE) NEGATIVE U Amphetamin/Meth Scrn (NEGATIVE) NEGATIVE MDMA (Ecstasy) Screen (NEGATIVE) NEGATIVE U Benzodiazepines Scrn (NEGATIVE) NEGATIVE Urine Cocaine Screen (NEGATIVE) NEGATIVE U Cannabinoids Screen (NEGATIVE) NEGATIVE Urines Urine Color YELLOW Urine Appearance CLEAR Urine pH (5.0 - 8.0) 5.5 Ur Specific [place] (1.010 - 1.030) 1.025 Urine Protein (NEGATIVE) NEGATIVE Urine Ketones (NEGATIVE) TRACE Urine Blood (NEGATIVE) NEGATIVE Urine Nitrite (NEGATIVE) NEGATIVE Urine Bilirubin (NEGATIVE) NEGATIVE Urine Urobilinogen (0.2 - 1.0 EU/dL) 0.2 Ur Leukocyte Esterase (NEGATIVE) NEGATIVE Urine RBC (0 - 1 rbc/hpf) NONE SEEN Urine WBC (0 - 1 wbc/hpf) 1-3 Ur Epithelial Cells (0 - 5 EPI/hpf) 3-5 Urine Bacteria (NONE SEEN) FEW (1+) Urine Glucose (NEGATIVE) 2+ Urine Comment CULT NOT INDICATED 06/27 1150 Chemistry Plasma Sodium (136 - 145 mmol/L) 138 Plasma Potassium (3.5 - 5.1 mmol/L) 3.3 Plasma Chloride (98 - 107 mmol/L) 99 CO2 (Enzymatic) (21 - 32 mmol/L) 25 BUN (7 - 18 mg/dL) 36 Creatinine (0.6 - 1.3 mg/dL) 1.6 Est GFR ( Amer) (mL/min) 42.07 Est GFR (Non-Af Amer) (mL/min) 34.71 Glucose (70 - 110 mg/dL) 226 Plasma Calcium (8.5 - 10.1 mg/dL) 9.1 Total Bilirubin (0.0 - 1.0 mg/dL) 0.8 AST (15 - 37 U/L) 24 ALT (12 - 78 U/L) 35 Alkaline Phosphatase (46 - 116 U/L) 117 Troponin (0.00 - 1.5 ng/mL) 0.00 Total Protein (6.4 - 8.2 g/dL) 7.2 Albumin (3.3 - 5.0 g/dL) 3.2 TSH 3rd Generation (0.30 - 3.74 uIU/mL) 17.262 Coagulation INR (0.8 - 1.2) 1.1 APTT (24 - 34 SECONDS) 27 D-Dimer, Quantitative (0.27 - 0.52 ug/mLFEU) 1.47 Hematology WBC (4.5 - 11.5 K/uL) 13.3 RBC (4.00 - 5.20 M/uL) 4.72 Hgb (12.0 - 16.0 gm/dL) 14.8 Hct (36.0 - 46.0 %) 45.1 MCV (80 - 100 fL) 96 MCH (26 - 34 pg) 31 RDW (11.6 - 14.8 %) 14.6 Neut % (Auto) (50 - 75 %) 80.9 Lymph % (Auto) (25 - 40 %) 12.9 [place] % (Auto) (3 - 14 %) 5.8 Eos % (Auto) (0 - 4 %) 0.2 Baso % (Auto) (0 - 2 %) 0.2 Plt Count, EDTA (150 - 400 K/uL) 215 PUBS MCHC (31 - 37 g/dL) 33 Microbiology Date/Time Procedure - Status Source Growth 06/27 1355 Blood Culture - RECD BLOOD 06/27 1348 Blood Culture - RECD BLOOD Assessment and Plan Problem List 1. Hypoglycemia Plan -Resolved -Patient with hyperglycemia today -Patient placed back on Lantus/Humalog sliding scale -Monitor 2. Hypothermia Plan -Resolved -Monitor 3. Hypotension Plan -Resolved -Blood pressure borderline low -IV fluid therapy with findings of prerenal azotemia -Monitor 4. Hypothyroidism Status Chronic Onset Date Unknown Plan -Patient with long-standing history of hypothyroidism -Patient had recent change in Synthroid to 0.15 mg by mouth daily. Patient was noted to have elevated TSH prior to change. -Continue Synthroid 0.15 mg by mouth daily -Monitor 5. Sepsis Status Acute Onset Date Unknown Plan -Patient presented with altered mental status -Patient with leukocytosis, elevated Procalcitonin -Afebrile since admission -No clear source of infection -Rocephin 2 g IV daily and her quit given in the ER per PM hospitalist -We'll recheck CBC with manual differential, ESR, CRP, and Procalcitonin a.m. -Await blood culture results -Repeat chest x-ray today -Monitor 6. Hypokalemia Status Acute Onset Date Unknown Plan -Patient with findings of hypokalemia on admission -Resolved -Monitor 7. Azotemia Status Acute Onset Date Unknown Plan -Patient with findings of prerenal azotemia/dehydration -IV fluid therapy -Monitor 8. Diabetes mellitus Status Chronic Onset Date Unknown Plan -Patient with history of long-standing diabetes mellitus type 2 -Lantus/Humalog -Blood sugar elevated -Continue above therapy/sliding scale -Hemoglobin A1c markedly elevated at 9.6 -Diabetic education -Monitor 9. Chronic back pain Status Chronic Onset Date Unknown Plan -Patient with history of chronic back pain -Chronic narcotic therapy -Patient continues to complain of back pain at this time with this being her primary concern -Toradol, continue Vicodin at outpatient dosage schedule -Follow-up with PCP post discharge 10. Atrial fibrillation with RVR Plan -Patient cardioverted in ER -Continue beta joey therapy -Check echocardiogram -Check BNP Current status: Fair, improved Anticipated discharge date: Anticipated discharge in 1-2 days Anticipated discharge placement: Home Patient care time: Time spent in chart review, patient interview, physical exam, CPOE, and care documentation: 35 minutes Visit to patient today: 2 Complexity of care: High E&M Codes Rounding: Inpt-High/[id number]
[2016-06-28] MEDS ORDERED: INSULIN N SC (10:24)
[2016-06-28] MEDS ORDERED: ASPIRIN EC325 MG PO (10:39)
[2016-06-28] MEDS ORDERED: TOPROL XL50 MG PO (10:40)
[2016-06-28] MEDS ORDERED: LIPITOR80 MG PO (10:41)
[2016-06-28] MEDS ORDERED: ZADITOR0.025 % OP (10:42)
[2016-06-28] MEDS ORDERED: FUROSEMIDE40 MG PO (10:44)
[2016-06-28] MEDS ORDERED: LOSARTAN POTAS100 MG PO (10:44)
[2016-06-28] MEDS ORDERED: ALDACTONE25 MG PO (10:45)
[2016-06-28] MEDS ORDERED: CVS ACID CONTRO20 MG PO (10:45)
[2016-06-28] MEDS ORDERED: [UNRECOGNIZED DRUG - OTHER] (10:48)
[2016-06-28] MEDS ORDERED: NITROSTAT0.4 MG SL (10:49)
--- NOTE | 2016-06-28 18:57 | DIAGNOSTIC IMAGING REPORT ---
PROCEDURE: XR CHEST 1 VIEW INDICATION: R/O pneumonia TECHNIQUE: Portable AP view 05:38 p.m. COMPARISON: 06/27/2016 FINDINGS: Lungs are clear. Cardiomegaly. Pulmonary vasculature is normal. Thorax is normal. IMPRESSION: 1. Lungs clear, cardiomegaly
[2016-06-29] VITALS (12 sets, daily range): BP systolic 92–120; BP diastolic 46–65
--- NOTE | 2016-06-29 07:34 | Progress Note ---
Subjective General Note Date: June 29, 2016 Admission Date: June 27, 2016 Hospital Day: 3 PCP: Elroy Alvarez M.D. Status: Inpatient Advanced Directive: FULL CODE Room: 303 Brief History: The patient is a 60-year-old white female with a significant past medical history of diabetes mellitus, hypothyroidism, hypertension, degenerative joint disease, cataracts, hypercholesterolemia, gastroesophageal reflux, who presented to [facility] emergency department on the day of admission secondary to complaints of altered mental status and shortness of breath. [facility] ER evaluation was consistent with findings of hypoglycemia, hypothermia, altered mental status, atrial fibrillation with rapid ventricular response, and possible sepsis. Secondary to the above, the patient was admitted by Jamil Navarro M.D. for further evaluation and treatment. For other history present illness, past medical history, family history, social history, review of systems, and admission physical examination please see the patient's history and physical examination and ER visit note in the patient's medical record. Subjective: The patient status is improved today. More alert. Complains of backache- chronic and right hip pain. Back pain/hip pain is the patient's primary concern at this time. No other specific requests or complaints Patient requests: None other than improved pain control Medications and Allergies Medications Current Medications Sig/Valeria Start time Last Medication Dose Route Stop Time Status Admin Spironolactone 25 MG DAILY 06/29 0900 AC PO Atorvastatin Calcium 80 MG QPM 06/28 1800 AC 06/28 PO 1835 Digoxin 250 MCG DAILY 06/28 1700 AC 06/28 PO 1838 Levothyroxine Sodium 50 MCG 0600 06/28 1659 AC 06/29 PO 0554 Levothyroxine Sodium 100 MCG 0600 06/28 1659 AC 06/29 PO 0554 Aspirin 325 MG DAILY 06/28 1658 AC 06/28 PO 1838 Sodium Chloride 500 ML ASDIRECTED 06/28 1500 AC 06/28 IV 1518 Insulin Human Lispro See Dose ACHS 06/28 1130 AC 06/28 Insts (1) SC 1657 Acetaminophen/ See Dose Q6H PRN 06/28 1115 AC 06/29 Hydrocodone Bitart Insts (2) PO 0247 Ceftriaxone Sodium/ 50 ML Q24HR 06/28 0900 AC 06/28 Dextrose IV 0902 Insulin Glargine 20 UNITS 0800,2100 06/28 0900 AC 06/28 SC 2129 Pantoprazole Sodium 40 MG DAILY@0600 06/28 0600 AC 06/29 IV 0554 Sodium Chloride 1,000 ML ASDIRECTED 06/28 0200 AC 06/29 IV 0247 Metoprolol Tartrate 25 MG Q8HR 06/27 220 AC 06/28 PO 0507 Dextrose See Dose Q15MIN PRN 06/27 213 AC Insts (3) IV Dextrose See Dose Q15MIN PRN 06/27 213 AC Insts (4) PO Dextrose/Water 1,000 ML ASDIRECTED PRN 06/27 2129 AC IV Glucagon 1 MG Q15MIN PRN 06/27 2129 AC IM Azithromycin 500 MG Q24H 06/27 2099 AC 06/28 Sodium Chloride 250 ML IV 06/29 Enoxaparin Sodium 40 MG QHS 06/27 2099 AC 06/28 SC 212 Acetaminophen 650 MG Q4H PRN 06/27 1914 AC 06/28 PO 0902 Al Hydrox/Mg Hydrox/ 15 ML Q1H PRN 06/27 1914 AC Simethicone PO Albuterol/Ipratropium 3 ML Q6H PRN 06/27 1914 AC IN Atropine Sulfate 0.5 MG Q3MIN PRN 06/27 1914 AC IV Lidocaine HCl See Dose ONCE PRN 06/27 1914 AC Insts (5) IV Magnesium Hydroxide 10 ML DAILY PRN 06/27 1914 AC PO Morphine Sulfate 2 MG Q3M PRN 06/27 1914 AC 06/29 IV 0247 Naloxone HCl 0.4 MG PRN PRN 06/27 1914 AC IV Nitroglycerin 0.4 MG Q5M PRN 06/27 1914 AC SL Ondansetron HCl 4 MG Q6H PRN 06/27 1914 AC IV Dose Instructions: (1)Insulin Human Lispro: MEDIUM DOSE: ACCUCHECK AND SLIDING SCALE >>To change sliding scale DISCONTINUE this order and enter a NEW order. Thanks< (2)Acetaminophen/Hydrocodone Bitart: 1 - 2 TABLETS (3)Dextrose: 25 OR 50 ML SEE ADMIN CRITERIA (4)Dextrose: 1 OR 2 TUBES SEE ADMIN CRITERIA (5)Lidocaine HCl: 1.5 MG/KG Allergies Coded Allergies: Coconut Flavor (06/28/16) Davilla (06/28/16) Physical Exam Vital Signs / I&Os Vital Signs Date Time Temp Pulse Resp B/P Pulse O2 O2 Flow FiO2 Ox Delivery Rate 06/29 0612 63 18 102/53 94 Room Air 06/29 0509 55 16 92/49 97 Nasal 2.0 Cannula 06/29 0405 61 18 92/47 95 Nasal 2.0 Cannula 06/29 0305 63 18 106/53 98 Nasal 2.0 Cannula 06/29 0205 97.9 64 18 116/53 99 Nasal 2.0 Cannula 06/29 0100 63 18 99/46 97 Nasal 2.0 Cannula 06/29 0008 56 16 105/52 98 Nasal 2.0 Cannula 06/28 2304 60 16 98/47 97 Nasal 2.0 Cannula 06/28 2200 79 16 95/44 100 Nasal 2.0 Cannula 06/280 69 16 95/44 99 Nasal 2.0 Cannula 06/28 2028 2.0 06/28 2020 Nasal 2.0 Cannula 06/28 2009 65 16 99/47 100 Nasal 2.0 Cannula 06/28 1909 65 16 98/45 97 Nasal 2.0 Cannula 06/28 1838 64 06/28 1812 97.9 60 16 104/53 100 Nasal 2.0 Cannula 06/28 1658 64 16 108/46 100 Nasal 2.0 Cannula 06/28 1608 61 16 95/48 95 Nasal 2.0 Cannula 06/28 1510 63 16 95/42 99 Nasal 2.0 Cannula 06/28 1400 98.2 74 16 92/47 100 Nasal 2.0 Cannula 06/28 1320 68 94/44 100 Nasal 3.0 Cannula 06/28 1300 65 15 92/46 100 Nasal 3.0 Cannula 06/28 1227 61 16 97/42 97 Nasal 3.0 Cannula 06/28 1100 72 18 92/60 100 Nasal 3.0 Cannula 06/28 1025 97.9 06/28 1000 68 15 101/45 100 Nasal 3.0 Cannula 06/28 0900 68 20 113/44 100 Nasal 3.0 Cannula 06/28 0812 65 16 112/50 100 Nasal 3.0 Cannula 06/28 0800 2.0 I&O 06/29 0000 06/28 1600 06/28 08 Intake Total 930 600 200 Output Total 187 1704 820 Balance 516 -[phone] -819 General Appearance Oriented X3, Cooperative, No acute distress, remains slightly lethargic Lungs Clear to auscultation, Normal air movement Cardiovascular Regular rate and rhythm, Normal S1 and S2, 2/6 systolic murmur present Abdomen Normal bowel sounds, Soft, No tenderness Extremities No cyanosis, No clubbing, No edema Neurological Cranial nerves intact, Strength 5/5 x4 ext's, No lateralizing signs Psych/Mental Status Mental status normal, Mood depressed LAB Results Laboratory Tests 06/29 06/29 06/28 06/28 0630 0630 1213 0840 Chemistry Plasma Sodium (136 - 145 mmol/L) 141 Plasma Potassium (3.5 - 5.1 mmol/L) 3.9 Plasma Chloride (98 - 107 mmol/L) 108 CO2 (Enzymatic) (21 - 32 mmol/L) 24 BUN (7 - 18 mg/dL) 32 Creatinine (0.6 - 1.3 mg/dL) 1.2 Est GFR ( Amer) (mL/min) 58.64 Est GFR (Non-Af Amer) (mL/min) 48.38 Glucose (70 - 110 mg/dL) 135 Plasma Calcium (8.5 - 10.1 mg/dL) 7.9 Creatine Kinase Cancelled Troponin Cancelled C-Reactive Protein (0.0 - 0.9 mg/dL) 4.2 Procalcitonin (0 - 0.5 ng/mL) Pending 4.8 Hematology WBC (4.5 - 11.5 K/uL) 11.0 RBC (4.00 - 5.20 M/uL) 3.58 Hgb (12.0 - 16.0 gm/dL) 10.8 Hct (36.0 - 46.0 %) 33.9 MCV (80 - 100 fL) 95 MCH (26 - 34 pg) 30 RDW (11.6 - 14.8 %) 14.6 Neut % (Auto) (50 - 75 %) 63 Lymph % (Auto) (25 - 40 %) 27 [place] % (Auto) (3 - 14 %) 6 Eos % (Auto) (0 - 4 %) 4 Baso % (Auto) (0 - 2 %) 0 Band Neutrophils % (0 - 8 %) 0 Metamyelocytes % (0 - 1 %) 0 Myelocytes (0 - 1 %) 0 Other Cell Type 0 Plt Count, EDTA (150 - 400 K/uL) 176 RBC Morphology 1+ HYPOCHROMIA PUBS MCHC (31 - 37 g/dL) 32 06/28 06/28 0840 0840 Chemistry Plasma Sodium (136 - 145 mmol/L) 139 Plasma Potassium (3.5 - 5.1 mmol/L) 4.1 Plasma Chloride (98 - 107 mmol/L) 104 CO2 (Enzymatic) (21 - 32 mmol/L) 22 BUN (7 - 18 mg/dL) 36 Creatinine (0.6 - 1.3 mg/dL) 1.3 Est GFR ( Amer) (mL/min) 53.46 Est GFR (Non-Af Amer) (mL/min) 44.11 Glucose (70 - 110 mg/dL) 180 Lactic Acid (0.4 - 2.0 mmol/L) 2.0 Plasma Calcium (8.5 - 10.1 mg/dL) 8.5 Microbiology Date/Time Procedure - Status Source Growth 06/28 0800 MRSA Screen - RECD NOSE Imaging Hip X-Rays IMPRESSION: 1. Mild degenerative narrowing both hip joints. Dictated by: PETER SULLIVAN MD D: ULI;06/29/16 1623 Assessment and Plan Problem List 1. Atrial fibrillation with RVR Plan -Resolved -Patient in normal sinus rhythm/sinus bradycardia -Decreased Lopressor to 12.5 mg by mouth twice a day. -Monitor 2. Hypoglycemia Plan -Resolved 3. Hypothermia Plan -Resolved 4. Hypotension Plan -Resolved 5. Hypothyroidism Status Chronic Onset Date Unknown Plan -Patient with elevated TSH on admission -Synthroid has been increased from 0.1 to 0.15 mg by mouth daily. -Outpatient follow-up with PCP 6. Sepsis Status Acute Onset Date Unknown Plan -Patient admitted with suspected sepsis -Blood cultures remained negative -Chest x-ray unremarkable -DC antimicrobials in a.m. -Monitor 7. Hypokalemia Status Acute Onset Date Unknown Plan -Resolved. -Potassium 3.9 today. -Monitor 8. Azotemia Status Acute Onset Date Unknown Plan -Improving -Encourage by mouth intake -Monitor 9. Diabetes mellitus Status Chronic Onset Date Unknown Plan -Blood sugars improved -Continue Lantus 20 units subcutaneous twice a day and Humalog sliding scale -Monitor blood sugar before meals and at bedtime -Diabetic education 10. Chronic back pain Status Chronic Onset Date Unknown Plan -Patient with chronic back pain -Combination therapy with Celebrex/Vicodin -Status improved 11. Hip pain Status Chronic Onset Date Unknown Plan -Patient with complaints of back and right-sided hip pain -Right hip shows mild degenerative changes -Celebrex 200 mg by mouth twice a day, continue Vicodin when necessary -Monitor Current status: Fair, improved Anticipated discharge date: Anticipated discharge in a.m. Anticipated discharge placement: Home Patient care time: Time spent in chart review, patient interview, physical exam, CPOE, and care documentation: 25 minutes Visit to patient today: 2 Complexity of care: Moderate E&M Codes Rounding: Inpt-Moderate/48675 CPOE, and care documentation: 25 minutes Visit to patient today: 2 Complexity of care: Moderate E&M Codes Rounding: Inpt-Moderate/17443
--- NOTE | 2016-06-29 16:24 | DIAGNOSTIC IMAGING REPORT ---
PROCEDURE: XR PELVIS 1 OR 2 VIEWS INDICATION: Hip pain RIGHT TECHNIQUE: AP view. COMPARISON: None. FINDINGS: There is a mild degenerative narrowing of both hip joints. Osseous structures are normal. IMPRESSION: 1. Mild degenerative narrowing both hip joints.
--- NOTE | 2016-06-29 18:25 | ED MED RECONCILIATION SUMMARY ---
Patient: KAMARI BALDERAS Medication Reconciliation Report [facility] VisitID: [id number] [place] [address] 60y, F Registration Date/Time: 06/27/2016 Weight: 99.7 kg Height/Length: 66 in. BMI: 35.5 ALLERGIES: NKDA The patient's Home Medications are listed below: THE FOLLOWING MEDICATIONS NEED TO BE RECONCILED: Digoxin Oral (250 mcg) 1 tablet, daily Famotidine Oral (20 mg) 1 tablet, 2x a day Furosemide Oral (40 mg) 1 tablet, daily HumuLIN N Subcutaneous (100 unit/mL) 55 units q Morning and 37 units every evening HumuLIN R Injection (100 unit/mL) 5 units, BID Hydrocodone-Acetaminophen Oral (7.5-325 mg) 1 tablet, 4x a day Levothyroxine Sodium Oral (150 mcg) 1 tablet, daily Levothyroxine Sodium Oral (100 mcg) 1 tablet, daily Losartan Potassium Oral (100 mg) 1 tablet, daily Metoprolol Succinate ER Oral (100 mg) 1 tablet, BID Spironolactone Oral (25 mg) 1 tablet, daily The source(s) of the original Home Medication information: Not obtained. The following Medications were given to the patient in the Emergency Department: IV NS IV Fluids bolus 0, then 999 mL/hr, administered: 06/27/2016 11:24:00 AM Etomidate [IVP] IVP 20 mg, administered: 06/27/2016 11:29:00 AM Naloxone [IVP] IVP 0.1 mg, administered: 06/27/2016 12:15:00 PM Naloxone [IVP] IVP 0.1 mg, administered: 06/27/2016 12:30:00 PM IV NS IV Fluids bolus 0, then 999 mL/hr, administered: 06/27/2016 1:10:00 PM Ceftriaxone [IVPB] IVPB bolus 0, then 2 gm 150 mL/hr, administered: 06/27/2016 1:54:00 PM IV NS IV Fluids bolus 0, then 999 mL/hr, administered: 06/27/2016 3:03:00 PM Hydrocortisone [IVP] IVP 100 mg, administered: 06/27/2016 3:52:00 PM Levothyroxine IVP 100 mcg, administered: 06/27/2016 3:55:00 PM Morphine [IVP] IVP 2 mg, administered: 06/27/2016 5:25:00 PM Aspirin [PO] PO 325 mg, administered: 06/27/2016 7:10:00 PM IV NS IV Fluids bolus 0, then 75 mL/hr, administered: 06/27/2016 4:10:00 PM The following Medications were prescribed to the patient: None.
--- NOTE | 2016-06-29 18:25 | ED DISCHARGE INSTRUCTIONS ---
Patient: KAMARI BALDERAS ANN General Instructions [facility] VisitID: [id number] [address] [place] [address] 60y, F Registration Date/Time: 06/27/2016 myxedema coma hypothymia hypoglycemia atrial fibrillation with rapid ventricular response hypotension SIRS. (Electronically signed by Dick Sherwood Dr. 06/29/2016 18:24)
--- NOTE | 2016-06-29 18:25 | ED MAR SUMMARY ---
..... Medication Administration Record [facility] [address] [place] [address] Patient: KAMARI BALDERAS Visit ID: [id number] 60y, F Weight: 99.7 kg Height/Length: 66 in BMI: 35.5 ALLERGIES: NKDA Start 11:24 06/27/2016 Rai Dykes R.N., Stop 12:06/27/2016 Rai Dykes R.N. Medication Administered: IV NS (SALINE), Dose: IV Fluids over 1 hour(s), Rate: 999 mL/hr, Dispensed: 1000 mL bag, Site: #1 left AC. Medication Ordered: IV NS : initial bolus 1000 mL (1000 mL/hr), then none - for X1 (NOW). Given 11:29 06/27/2016 Rai Dykes R.N. Medication Administered: ETOMIDATE [IVP], Dose: 20 mg IVP over 2 minute(s), Site: #1 left AC. Medication Ordered: Etomidate IV 20 mg (HIGH ALERT MEDICATION, NOW). Given 12:15 06/27/2016 Rai Dykes R.N. Medication Administered: NALOXONE [IVP], Dose: 0.1 mg IVP over 1 minute(s), Site: #1 left AC. Medication Ordered: Naloxone IV 0.1 mg (HIGH ALERT MEDICATION, NOW). Given 12:30 06/27/2016 Rai Dykes R.N. Medication Administered: NALOXONE [IVP], Dose: 0.1 mg IVP over 1 minute(s), Site: #1 left AC. Medication Ordered: Naloxone IV 0.1 mg (Repeat up to total dose of 0.4mg). Start 13:10 06/27/2016 Rai Dykes R.N., Stop 14:25 06/27/2016 Rai Dykes R.N. Medication Administered: IV NS (SALINE), Dose: IV Fluids over 1 hour(s), Rate: 999 mL/hr, Dispensed: 1000 mL bag, Site: #2 right AC. Medication Ordered: IV NS : initial bolus none -, then 1000 mL/hr for X1 (NOW). Start 13:54 06/27/2016 Rai Dykes R.N., Stop 14:17 06/27/2016 Rai Dykes R.N. Medication Administered: CEFTRIAXONE [IVPB], Dose: 2 gm IVPB over 20 minute(s), Rate: 150 mL/hr, Dispensed: 50 mL bag, Site: #2 right AC. Medication Ordered: Ceftriaxone IV 2 gm/50mL (NOW). Start 15:03 06/27/2016 Rai Dykes R.N., Stop 16:05 06/27/2016 Rai Dykes R.N. Medication Administered: IV NS (SALINE), Dose: IV Fluids over 1 hour(s), Rate: 999 mL/hr, Dispensed: 1000 mL bag, Site: #2 right AC. Medication Ordered: IV NS : initial bolus none -, then 1000 mL/hr (NOW). Given 15:52 06/27/2016 Rai Dykes R.N. Medication Administered: HYDROCORTISONE [IVP], Dose: 100 mg IVP over 2 minute(s), Site: #1 left AC. Medication Ordered: Hydrocortisone IV 100 mg (NOW). Given 15:55 06/27/2016 Rai Dykes R.N. Medication Administered: Levothyroxine *, Dose: 100 mcg * IVP. Medication Ordered: - (Thyroid hormone 100 mcg IV once now). Start 16:10 06/27/2016 Rai Dykes R.N., Continued Upon Admission 19:20 06/27/2016 Rai Dykes R.N. Medication Administered: IV NS (SALINE), Dose: IV Fluids over 6 hour(s), Rate: 75 mL/hr, Dispensed: 1000 mL bag, Site: #2 right AC. Medication Ordered: IV NS : initial bolus none -, then 75 mL/hr for 6h (NOW). Given 17:25 06/27/2016 Rai Dykes R.N. Medication Administered: MORPHINE [IVP], Dose: 2 mg IVP over 2 minute(s), Site: #2 right AC. Medication Ordered: Morphine IV 2 mg (HIGH ALERT MEDICATION, NOW). Given 19:10 06/27/2016 Rai Dykes R.N. Medication Administered: ASPIRIN [PO], Dose: 325 mg Tablets PO. Medication Ordered: Aspirin PO 325 mg (Do not crush or chew, NOW).
--- NOTE | 2016-06-29 18:25 | ED DISCHARGE INSTRUCTIONS ---
Patient: KAMARI BALDERAS ANN General Instructions [facility] VisitID: [id number] [address] [place] [address] 60y, F Registration Date/Time: 06/27/2016 myxedema coma hypothymia hypoglycemia atrial fibrillation with rapid ventricular response hypotension SIRS. (Electronically signed by Dick Sherwood Dr. 06/29/2016 18:24)
--- NOTE | 2016-06-29 18:25 | ED MED RECONCILIATION SUMMARY ---
Patient: KAMARI BALDERAS Medication Reconciliation Report [facility] VisitID: [id number] [place] [address] 60y, F Registration Date/Time: 06/27/2016 Weight: 99.7 kg Height/Length: 66 in. BMI: 35.5 ALLERGIES: NKDA The patient's Home Medications are listed below: THE FOLLOWING MEDICATIONS NEED TO BE RECONCILED: Digoxin Oral (250 mcg) 1 tablet, daily Famotidine Oral (20 mg) 1 tablet, 2x a day Furosemide Oral (40 mg) 1 tablet, daily HumuLIN N Subcutaneous (100 unit/mL) 55 units q Morning and 37 units every evening HumuLIN R Injection (100 unit/mL) 5 units, BID Hydrocodone-Acetaminophen Oral (7.5-325 mg) 1 tablet, 4x a day Levothyroxine Sodium Oral (150 mcg) 1 tablet, daily Levothyroxine Sodium Oral (100 mcg) 1 tablet, daily Losartan Potassium Oral (100 mg) 1 tablet, daily Metoprolol Succinate ER Oral (100 mg) 1 tablet, BID Spironolactone Oral (25 mg) 1 tablet, daily The source(s) of the original Home Medication information: Not obtained. The following Medications were given to the patient in the Emergency Department: IV NS IV Fluids bolus 0, then 999 mL/hr, administered: 06/27/2016 11:24:00 AM Etomidate [IVP] IVP 20 mg, administered: 06/27/2016 11:29:00 AM Naloxone [IVP] IVP 0.1 mg, administered: 06/27/2016 12:15:00 PM Naloxone [IVP] IVP 0.1 mg, administered: 06/27/2016 12:30:00 PM IV NS IV Fluids bolus 0, then 999 mL/hr, administered: 06/27/2016 1:10:00 PM Ceftriaxone [IVPB] IVPB bolus 0, then 2 gm 150 mL/hr, administered: 06/27/2016 1:54:00 PM IV NS IV Fluids bolus 0, then 999 mL/hr, administered: 06/27/2016 3:03:00 PM Hydrocortisone [IVP] IVP 100 mg, administered: 06/27/2016 3:52:00 PM Levothyroxine IVP 100 mcg, administered: 06/27/2016 3:55:00 PM Morphine [IVP] IVP 2 mg, administered: 06/27/2016 5:25:00 PM Aspirin [PO] PO 325 mg, administered: 06/27/2016 7:10:00 PM IV NS IV Fluids bolus 0, then 75 mL/hr, administered: 06/27/2016 4:10:00 PM The following Medications were prescribed to the patient: None.
--- NOTE | 2016-06-29 18:25 | ED MAR SUMMARY ---
..... Medication Administration Record [facility] [address] [place] [address] Patient: KAMARI BALDERAS Visit ID: [id number] 60y, F Weight: 99.7 kg Height/Length: 66 in BMI: 35.5 ALLERGIES: NKDA Start 11:24 06/27/2016 Rai Dykes R.N., Stop 12:06/27/2016 Rai Dykes R.N. Medication Administered: IV NS (SALINE), Dose: IV Fluids over 1 hour(s), Rate: 999 mL/hr, Dispensed: 1000 mL bag, Site: #1 left AC. Medication Ordered: IV NS : initial bolus 1000 mL (1000 mL/hr), then none - for X1 (NOW). Given 11:29 06/27/2016 Rai Dykes R.N. Medication Administered: ETOMIDATE [IVP], Dose: 20 mg IVP over 2 minute(s), Site: #1 left AC. Medication Ordered: Etomidate IV 20 mg (HIGH ALERT MEDICATION, NOW). Given 12:15 06/27/2016 Rai Dykes R.N. Medication Administered: NALOXONE [IVP], Dose: 0.1 mg IVP over 1 minute(s), Site: #1 left AC. Medication Ordered: Naloxone IV 0.1 mg (HIGH ALERT MEDICATION, NOW). Given 12:30 06/27/2016 Rai Dykes R.N. Medication Administered: NALOXONE [IVP], Dose: 0.1 mg IVP over 1 minute(s), Site: #1 left AC. Medication Ordered: Naloxone IV 0.1 mg (Repeat up to total dose of 0.4mg). Start 13:10 06/27/2016 Rai Dykes R.N., Stop 14:25 06/27/2016 Rai Dykes R.N. Medication Administered: IV NS (SALINE), Dose: IV Fluids over 1 hour(s), Rate: 999 mL/hr, Dispensed: 1000 mL bag, Site: #2 right AC. Medication Ordered: IV NS : initial bolus none -, then 1000 mL/hr for X1 (NOW). Start 13:54 06/27/2016 Rai Dykes R.N., Stop 14:17 06/27/2016 Rai Dykes R.N. Medication Administered: CEFTRIAXONE [IVPB], Dose: 2 gm IVPB over 20 minute(s), Rate: 150 mL/hr, Dispensed: 50 mL bag, Site: #2 right AC. Medication Ordered: Ceftriaxone IV 2 gm/50mL (NOW). Start 15:03 06/27/2016 Rai Dykes R.N., Stop 16:05 06/27/2016 Rai Dykes R.N. Medication Administered: IV NS (SALINE), Dose: IV Fluids over 1 hour(s), Rate: 999 mL/hr, Dispensed: 1000 mL bag, Site: #2 right AC. Medication Ordered: IV NS : initial bolus none -, then 1000 mL/hr (NOW). Given 15:52 06/27/2016 Rai Dykes R.N. Medication Administered: HYDROCORTISONE [IVP], Dose: 100 mg IVP over 2 minute(s), Site: #1 left AC. Medication Ordered: Hydrocortisone IV 100 mg (NOW). Given 15:55 06/27/2016 Rai Dykes R.N. Medication Administered: Levothyroxine *, Dose: 100 mcg * IVP. Medication Ordered: - (Thyroid hormone 100 mcg IV once now). Start 16:10 06/27/2016 Rai Dykes R.N., Continued Upon Admission 19:20 06/27/2016 Rai Dykes R.N. Medication Administered: IV NS (SALINE), Dose: IV Fluids over 6 hour(s), Rate: 75 mL/hr, Dispensed: 1000 mL bag, Site: #2 right AC. Medication Ordered: IV NS : initial bolus none -, then 75 mL/hr for 6h (NOW). Given 17:25 06/27/2016 Rai Dykes R.N. Medication Administered: MORPHINE [IVP], Dose: 2 mg IVP over 2 minute(s), Site: #2 right AC. Medication Ordered: Morphine IV 2 mg (HIGH ALERT MEDICATION, NOW). Given 19:10 06/27/2016 Rai Dykes R.N. Medication Administered: ASPIRIN [PO], Dose: 325 mg Tablets PO. Medication Ordered: Aspirin PO 325 mg (Do not crush or chew, NOW).
[2016-06-30 03:15] VITALS: BP 108/60
[2016-06-30 06:59] VITALS: BP 126/60
--- NOTE | 2016-06-30 09:27 | Progress Note ---
Subjective General Note Date: June 30, 2016 Admission Date: June 27, 2016 Hospital Day: 4 PCP: Elroy Alvarez M.D. Status: Inpatient Advanced Directive: FULL CODE Room: 303 Brief History: The patient is a 60-year-old white female with a significant past medical history of diabetes mellitus, hypothyroidism, hypertension, degenerative joint disease, cataracts, hypercholesterolemia, gastroesophageal reflux, who presented to [facility] emergency department on the day of admission secondary to complaints of altered mental status and shortness of breath. [facility] ER evaluation was consistent with findings of hypoglycemia, hypothermia, altered mental status, atrial fibrillation with rapid ventricular response, and possible sepsis. Secondary to the above, the patient was admitted by Jamil Navarro M.D. for further evaluation and treatment. For other history present illness, past medical history, family history, social history, review of systems, and admission physical examination please see the patient's history and physical examination and ER visit note in the patient's medical record. Subjective: The patient status is improved today. More alert. Complains of backache- chronic and right hip pain. Back pain/hip pain is the patient's primary concern at this time but appear improved on current medical regimen. No other specific requests or complaints Patient requests: None . Medications and Allergies Medications Current Medications Sig/Valeria Start time Last Medication Dose Route Stop Time Status Admin Insulin Human Lispro See Dose ACHS 06/30 0730 AC Insts (1) SC Metoprolol Tartrate 12.5 MG Q12HR 06/29 1516 AC 06/29 PO 2049 Digoxin 250 MCG 1400 06/29 1400 AC 06/29 PO 1326 Celecoxib 200 MG BID 06/29 1230 AC 06/30 PO 0849 Spironolactone 25 MG DAILY 06/29 0900 AC 06/30 PO 0849 Atorvastatin Calcium 80 MG QPM 06/28 1800 AC 06/29 PO 1730 Levothyroxine Sodium 50 MCG 0600 06/28 1659 AC 06/30 PO 0527 Levothyroxine Sodium 100 MCG 0600 06/28 1659 AC 06/30 PO 0527 Aspirin 325 MG DAILY 06/28 1658 AC 06/30 PO 0849 Sodium Chloride 500 ML ASDIRECTED 06/28 1500 AC 06/28 IV 1518 Acetaminophen/ See Dose Q6H PRN 06/28 1115 AC 06/30 Hydrocodone Bitart Insts (2) PO 0404 Ceftriaxone Sodium/ 50 ML Q24HR 06/28 09 AC 06/30 [place] 0850 Insulin Glargine 20 UNITS 0800,2100 06/28 09 AC 06/29 SC 2047 Pantoprazole Sodium 40 MG DAILY@0600 06/28 0600 AC 06/30 IV 0527 Dextrose See Dose Q15MIN PRN 06/27 2129 AC Insts (3) IV Dextrose See Dose Q15MIN PRN 06/27 2129 AC Insts (4) PO Dextrose/Water 1,000 ML ASDIRECTED PRN 06/27 2129 AC IV Glucagon 1 MG Q15MIN PRN 06/27 2129 AC IM Enoxaparin Sodium 40 MG QHS 06/27 2100 AC 06/29 SC 2047 Acetaminophen 650 MG Q4H PRN 06/27 1914 AC 06/28 PO 0902 Al Hydrox/Mg Hydrox/ 15 ML Q1H PRN 06/27 1914 AC Simethicone PO Albuterol/Ipratropium 3 ML Q6H PRN 06/27 1914 AC IN Atropine Sulfate 0.5 MG Q3MIN PRN 06/27 1914 AC IV Lidocaine HCl See Dose ONCE PRN 06/27 1914 AC Insts (5) IV Magnesium Hydroxide 10 ML DAILY PRN 06/27 1914 AC PO Morphine Sulfate 2 MG Q3M PRN 06/27 1914 AC 06/29 IV 0247 Naloxone HCl 0.4 MG PRN PRN 06/27 1914 AC IV Nitroglycerin 0.4 MG Q5M PRN 06/27 1914 AC SL Ondansetron HCl 4 MG Q6H PRN 06/27 1914 AC IV Dose Instructions: (1)Insulin Human Lispro: MEDIUM DOSE ACCUCHECK AND SLIDING SCALE >>To change sliding scale DISCONTINUE this order and enter a NEW order. Thanks< (2)Acetaminophen/Hydrocodone Bitart: 1 - 2 TABLETS (3)Dextrose: 25 OR 50 ML SEE ADMIN CRITERIA (4)Dextrose: 1 OR 2 TUBES SEE ADMIN CRITERIA (5)Lidocaine HCl: 1.5 MG/KG Allergies Coded Allergies: Coconut Flavor (06/28/16) [place] (06/28/16) Physical Exam Vital Signs / I&Os Vital Signs Date Time Temp Pulse Resp B/P Pulse O2 O2 Flow FiO2 Ox Delivery Rate 06/30 0855 Room Air 06/30 0659 58 19 126/60 92 06/30 0315 98.2 60 16 108/60 97 Room Air 02 2320 98.8 57 16 115/65 96 Room Air 06/29 2030 Room Air 06/29 1836 98.8 56 18 120/56 96 Room Air 06/29 1437 97.9 62 16 108/53 98 02 1326 70 02 1013 98.1 71 117/52 97 Room Air 0.0 I&O 06/30 0000 06/29 1600 06/29 0800 Intake Total 748 1625 4029 Output Total 500 425 474 Balance 248 1200 3555 General Appearance Alert, Oriented X3, Cooperative, No acute distress Lungs Scattered rhonchi otherwise clear to auscultation Cardiovascular Regular rate and rhythm, Normal S1 and S2 Abdomen Normal bowel sounds, Soft, No tenderness Extremities No cyanosis, No clubbing Neurological Grossly normal Psych/Mental Status Mental status normal, Mood normal LAB Results Laboratory Tests 06/30 06/30 0510 0510 Chemistry Plasma Sodium (136 - 145 mmol/L) 141 Plasma Potassium (3.5 - 5.1 mmol/L) 4.0 Plasma Chloride (98 - 107 mmol/L) 107 CO2 (Enzymatic) (21 - 32 mmol/L) 23 BUN (7 - 18 mg/dL) 24 Creatinine (0.6 - 1.3 mg/dL) 1.1 Est GFR ( Amer) (mL/min) >60 Est GFR (Non-Af Amer) (mL/min) 53.49 Glucose (70 - 110 mg/dL) 109 Plasma Calcium (8.5 - 10.1 mg/dL) 8.3 C-Reactive Protein (0.0 - 0.9 mg/dL) 8.3 Procalcitonin (0 - 0.5 ng/mL) 1.2 Hematology WBC (4.5 - 11.5 K/uL) 8.7 RBC (4.00 - 5.20 M/uL) 3.76 Hgb (12.0 - 16.0 gm/dL) 11.5 Hct (36.0 - 46.0 %) 35.2 MCV (80 - 100 fL) 94 MCH (26 - 34 pg) 31 RDW (11.6 - 14.8 %) 14.4 Neut % (Auto) (50 - 75 %) 57 Lymph % (Auto) (25 - 40 %) 31 [place] % (Auto) (3 - 14 %) 7 Eos % (Auto) (0 - 4 %) 4 Baso % (Auto) (0 - 2 %) 0 Band Neutrophils % (0 - 8 %) 1 Metamyelocytes % (0 - 1 %) 0 Myelocytes (0 - 1 %) 0 Other Cell Type 0 Plt Count, EDTA (150 - 400 K/uL) 185 PUBS MCHC (31 - 37 g/dL) 33 Assessment and Plan Problem List 1. Atrial fibrillation with RVR Plan -Resolved, patient in normal sinus rhythm -Continue Lopressor 12.5 mg by mouth twice a day and digoxin 0.25 mg by mouth daily -Discharge today -Outpatient follow-up with Dr. Alvarez next week 2. Hypoglycemia Plan -Resolved 3. Hypothermia Plan -Resolved 4. Hypotension Plan -Resolved 5. Hypothyroidism Status Chronic Onset Date Unknown Plan -Continue Synthroid 0.15 mg by mouth daily -Follow-up with PCP next week 6. Hypokalemia Status Acute Onset Date Unknown Plan -Resolved 7. Azotemia Status Acute Onset Date Unknown Plan -Much improved -Follow-up with PCP next week -Decreased diuretic therapy on discharge -Low-salt diet 8. Diabetes mellitus Status Chronic Onset Date Unknown Plan -Patient presented with findings of hypoglycemia -Lantus insulin 20 units subcutaneous twice a day -Medium dose sliding scale -Follow up with PCP next week for adjustments in therapy 9. Chronic back pain Status Chronic Onset Date Unknown Plan -Stable, improved -Continue present medical regimen post discharge -Follow-up with PCP next week 10. Sepsis Status Acute Onset Date Unknown Plan -Patient presented with suspected sepsis -WBC within normal limits, afebrile, chest x-ray, urinalysis, blood cultures within normal limits -Hold further antimicrobial therapy -Patient advised to call private M.D. for increased temperature or significant changes of an overall status over the next several days -Follow-up with PCP next week 11. Hip pain Status Chronic Onset Date Unknown Plan -X-ray show mild degenerative joint disease -Status improved with current medical therapy -Follow-up with PCP next week Current status: Fair, improved Anticipated discharge date: Today Anticipated discharge placement: Home Patient care time: Time spent in chart review, patient interview, physical exam, CPOE, and care documentation: Greater than 30 minutes Visit to patient today: 1 Complexity of care: Moderate For other recommendations regarding discharge diet, activity, followup, and discharge medications please see the patient's discharge instructions. Greater than 30 min. was spent in the patient's discharge preparation including discharge interview and physical examination, progress note, discharge instructions, and discharge summary E&M Codes Discharge: Inpt >30 min spent/[id number]
--- NOTE | 2016-06-30 09:34 | Discharge Summary ---
Discharge Summary Report Admit Date 06/27/16 Discharge Date 06/30/16 Admission Diagnosis 1. Hypoglycemia 2. Atrial fibrillation with rapid ventricular response 3. Hypoglycemia 4. Diabetes mellitus 5. Rule out sepsis 6. Prerenal azotemia 7. Hypothyroidism 8. Hypokalemia Discharge Diagnosis 1. Hypoglycemia 2. Atrial fibrillation with rapid ventricular response 3. Hypoglycemia 4. Diabetes mellitus 5. Rule out sepsis 6. Prerenal azotemia 7. Hypothyroidism 8. Hypokalemia Brief History The patient is a 60-year-old white female with a significant past medical history of diabetes mellitus, hypothyroidism, hypertension, degenerative joint disease, cataracts, hypercholesterolemia, gastroesophageal reflux, who presented to [facility] emergency department on the day of admission secondary to complaints of altered mental status and shortness of breath. [facility] ER evaluation was consistent with findings of hypoglycemia, hypothermia, altered mental status, atrial fibrillation with rapid ventricular response, and possible sepsis. Secondary to the above, the patient was admitted by Jamil Navarro M.D. for further evaluation and treatment. For other history present illness, past medical history, family history, social history, review of systems, and admission physical examination please see the patient's history and physical examination and ER visit note in the patient's medical record. Hospital Course The following problems and their management were noted during the patient's hospitalization: 1. Hypoglycemia The patient presented with findings of hypoglycemia. This resolved soon after admission. Not problematic throughout the remainder of the patient's hospitalization. Adjustments in the patient's diabetic regimen were done at discharge. See discharge instructions 2. Atrial fibrillation with rapid ventricular response The patient presented with atrial fibrillation and associated rapid ventricular response. She converted to normal sinus rhythm during her hospital stay.Echocardiogram showed normal left ventricular systolic function. There was moderate to severe mitral regurgitation. No evidence of pulmonary congestion. Outpatient follow-up with PCP. Results discussed with patient and encouraged follow-up with PCP/cardiology post discharge 3. Hypothermia The patient was noted to have hypothermia on admission. This resolved early in the hospital course. Not problematic throughout the remainder of her hospital stay. 4. Diabetes mellitus The patient has a long-standing history of diabetes mellitus. Presented with hypoglycemia. She was treated with long-acting/short acting sliding scale. Blood sugar adequately controlled on discharge. Outpatient follow-up with PCP. Monitor blood sugar before meals and at bedtime. Outpatient diabetic education. See discharge instructions 5. Rule out sepsis The patient presented with rule out sepsis. Chest x-ray, blood cultures, UA, all unremarkable. No source of infection identified. Patient discharged home with close outpatient follow-up. No fever or signs of infection on discharge. 6. Prerenal azotemia The patient presented with findings of prerenal azotemia/dehydration. This resolved during her hospital stay. 7. Hypothyroidism Patient with findings of hypothyroidism. Stable on discharge. Outpatient follow up with PCP. See discharge instructions. 8. Hypokalemia Patient noted to have findings of hypokalemia. This resolved during the patient's hospital stay. See discharge instructions. General Appearance Alert, Oriented X3, Cooperative, No acute distress Lungs Clear to auscultation, Normal air movement Cardiovascular Regular Rate, Normal S1, Normal S2 Neurological Strength at 5/5 X4 ext, Cranial nerves 3-12 NL Psych/Mental Status Mental status NL, Mood NL Discharge Instructions/Meds For other recommendations regarding discharge diet, activity, follow-up, and discharge medications please see the patient's discharge instructions. Discharge condition: Fair, improved-stable Greater than 30 minutes was spent in the patient's discharge preparation The patient was interviewed and examined on the day of discharge. E&M Codes Discharge: Inpt >30 min spent/[id number]
[2016-06-30 11:36] VITALS: BP 116/53
[2016-06-30] MEDS ORDERED: CELEBREX200 MG PO (14:41)
[2016-06-30] MEDS ORDERED: LOPRESSOR25 MG PO ×2 (14:41→14:42)
[2016-06-30] MEDS ORDERED: LANTUS SOL100 UNITS/ SC (14:41)
[2016-06-30] MEDS ORDERED: HUMALOG KWI100 MG/ML SC (14:41)
--- NOTE | 2016-06-30 14:45 | Provider's Discharge Care Plan ---
Problem, Goal, Plan Problem List 1. Atrial fibrillation with RVR Goals: Improve disease control, Prevent disease progress Instructions: Follow up as directed, Take meds as directed 2. Diabetes mellitus Goals: Improve disease control, Prevent disease progress Instructions: Follow up as directed, Take meds as directed 3. Hypothyroidism Goals: Improve disease control, Prevent disease progress Instructions: Follow up as directed, Take meds as directed
--- NOTE | 2016-07-04 10:55 | DIAGNOSTIC IMAGING REPORT ---
PROCEDURE: US ECHOCARDIOGRAM INDICATION: Intermittent (paroxysmal) atrial fibrillation TECHNIQUE: Fair COMPARISON: None. FINDINGS: I. Chambers: Left atrium is mildly enlarged. Left atrial dimension is 42 mm. Left ventricle is normal in size. Left ventricular end-diastolic dimension is 42 mm and the end-systolic dimension is 30 mm. There are no regional wall motion abnormalities identified. Left ventricular junction fraction is 55-60%. There is no evidence of left ventricular hypertrophy (intraventricular septum and the posterior wall both measure 10 mm in thickness.) Right ventricle and right atrium. Mildly enlarged. II. Valves: All of the valves appear normal in morphology. There is no evidence of mitral valve prolapse. There is no evidence of aortic valve stenosis. Color Doppler interrogation reveals trace aortic valve regurgitation, moderate to severe mitral valve regurgitation, moderate tricuspid valve regurgitation and mild to moderate pulmonic insufficiency. RV systolic pressure is moderately increased at 46-51 mmHg. III. Diastolic function: Diastolic function is indeterminate. Decreased mitral annular velocities suggest at least moderate diastolic dysfunction. IV. Miscellaneous: There is no pericardial effusion. IMPRESSION: 1. Normal left ventricular size and function. LVEF 55-60%. 2. Right ventricle and right atrium appear to be enlarged. 3. Indeterminate diastolic function. 4. Trace aortic valve regurgitation. 5. Moderate to severe mitral valve regurgitation 6. Moderate tricuspid valve regurgitation 7. Mild to moderate pulmonary hypertension, RVSP 46-51 mmHg.
== END 2016-06-30 18:50 | disposition home or self-care (01) | DRG 138 ==
LOC: ED SRH 11:06 → TRANS SRH 16:03 → CC SRH 19:30
PROVIDERS: ADMIT Internal Medicine
PROC: 0T9B70Z Drainage of Bladder with Drainage Device, Via Natural or Artificial Opening (ICD-10-PCS; principal; 2016-06-27)
PROC: 5A2204Z Restoration of Cardiac Rhythm, Single (ICD-10-PCS; principal; 2016-06-27)
DX: I48.91 Unspecified atrial fibrillation (principal); E11.649 Type 2 diabetes mellitus with hypoglycemia without coma; R68.0 Hypothermia, not associated with low environmental temperature; E87.6 Hypokalemia; I95.9 Hypotension, unspecified; R39.2 Extrarenal uremia; E03.9 Hypothyroidism, unspecified; M16.10 Unilateral primary osteoarthritis, unspecified hip